=== PATIENT | male | born 1960 | race Caucasian/White ===

== ENCOUNTER 2016-11-06 09:06 | Inpatient (IN) | payer OTHER ==
[2016-11-06 09:23] VITALS: BMI 28.5
--- NOTE | 2016-11-06 12:43 | HP ---
Admission ROS [facility] Chief Complaint: I am here for rehab for treatment. Allergies/Adverse Reactions: Allergies Allergy/AdvReac Type Severity Reaction Status Date / Time No Known Allergies Allergy Verified 11/06/16 09:55 History of Present Illness: pt is a 56yr old male with a history of alcohol and opioid dependence seeking rehab for treatment. Exam Limitations: No Limitations - Ebola screening Have you traveled outside of the country in the last 21 days: No Have you had contact with anyone from an Ebola affected area: No Have you been sick,other than usual withdrawal symptoms: No - Review of Systems Constitutional: Loss of Appetite EENT: reports: No Symptoms Reported Respiratory: reports: No Symptoms reported Cardiac: reports: Lightheadedness GI: reports: Poor Appetite, Poor Fluid Intake, Indigestion : reports: No Symptoms Reported Musculoskeletal: reports: Muscle Pain, Joint Stiffness Integumentary: reports: No Symptoms Reported Neuro: reports: No Symptoms reported Endocrine: reports: No Symptoms Reported Hematology: reports: No Symptoms Reported Psychiatric: reports: Judgement Intact, Mood/Affect Appropiate, Orientated x3, Agitated, Anxious Other Systems: Reviewed and Negative Patient History - Patient Medical History Hx Anemia: No Hx Asthma: Yes (Pt is on MDI) Hx Chronic Obstructive Pulmonary Disease (COPD): Yes Hx Cancer: No Hx Cardiac Disorders: No Hx Congestive Heart Failure: No Hx Hypertension: No Hx Hypercholesterolemia: No Hx Pacemaker: No HX Cerebrovascular Accident: No Hx Seizures: No Hx Dementia: No Hx Diabetes: No Hx Gastrointestinal Disorders: No Hx Liver Disease: No Hx Genitourinary Disorders: No Hx Sexually Transmitted Disorders: No Hx Renal Disease (ESRD): No Hx Thyroid Disease: No Hx Human Immunodeficiency Virus (HIV): No (LAST 08/04 NEGATIVE) Hx Hepatitis C: No Hx Depression: No Hx Suicide Attempt: Yes (Tried to cut wrists in 1978; denies any S/H ideation today) Hx Bipolar Disorder: Yes Hx Schizophrenia: Yes (celexa and seroquel cogentin fluphenazine) - Patient Surgical History Past Surgical History: Yes Hx Neurologic Surgery: No Hx Cataract Extraction: Yes (L eye) Hx Cardiac Surgery: No Hx Lung Surgery: No Hx Breast Surgery: No Hx Breast Biopsy: No Hx Abdominal Surgery: No Hx Appendectomy: No Hx Cholecystectomy: No Hx Genitourinary Surgery: No Hx Section: No Hx Orthopedic Surgery: Yes (RIGHT KNEE 06/2016) Other Surgical History: L wrist sx in 1978. hemmorhoidectomy Anesthesia Reaction: No - PPD History Previous Implant?: Yes Documented Results: Negative w/proof Date: 10/26/16 PPD to be Administered?: No - Reproductive History Patient is a Female of Child Bearing Age (11 -55 yrs old): No - Smoking Cessation Smoking history: Current every day smoker Have you smoked in the past 12 months: Yes Aproximately how many cigarettes per day: 4 Cigars Per Day: 8 Hx Chewing Tobacco Use: No Initiated information on smoking cessation: Yes 'Breaking Loose' booklet given: 11/06/16 - Substance & Tx. History Hx Alcohol Use: Yes Hx Substance Use: Yes Substance Use Type: Alcohol, Heroin Hx Substance Use Treatment: Yes - Substances Abused Alcohol Route: Oral Frequency: Daily Amount used: 20 coors light/vodka Age of first use: 13 Date of Last Use: 11/03/16 Heroin Route: Inhalation Frequency: 3-6 times per week Amount used: 3 bags Age of first use: 16 Date of Last Use: 11/03/16 Family Disease History - Family Disease History Family Disease History: Heart Disease: Mother (), Other: Father (alcohol ,), Brother, Sister Admission Physical Exam S - Vital Signs Vital Signs: Vital Signs - 24 hr 11/06/16 09:20 Temperature 98.2 F Pulse Rate 88 Respiratory 20 Rate Blood Pressure 122/71 - Physical General Appearance: Yes: Appropriately Dressed, Moderate Distress, Tremorous, Irritable, Sweating, Anxious HEENTM: Yes: Hearing grossly Normal, Normal Voice, Nasal Congestion Respiratory: Yes: Lungs Clear, Normal Breath Sounds, No Respiratory Distress Neck: Yes: No masses,lesions,Nodules Breast: Yes: Within Normal Limits Cardiology: Yes: Regular Rhythm, Regular Rate, S1, S2 Abdominal: Yes: Normal Bowel Sounds, Non Tender, Soft Genitourinary: Yes: Within Normal Limits Back: Yes: Normal Inspection Musculoskeletal: Yes: Joint Stiffness Extremities: Yes: Normal Capillary Refill, Non-Tender, Tremors Neurological: Yes: Fully Oriented, Alert, Normal Response Integumentary: Yes: Normal Color, Diaphoresis Lymphatic: Yes: Within Normal Limits - Diagnostic (1) Asthma Current Visit: Yes Status: Chronic Qualifiers: Asthma severity: mild intermittent Asthma complication type: with status asthmaticus Qualified Code(s): J45.22 - Mild intermittent asthma with status asthmaticus Comment: sees primary (2) COPD (chronic obstructive pulmonary disease) Current Visit: Yes Status: Chronic Qualifiers: COPD type: emphysema Emphysema type: other Qualified Code(s): J43.8 - Other emphysema Comment: SYMBICORT (3) Knee osteoarthritis Current Visit: Yes Status: Chronic Qualifiers: Osteoarthritis type: post-traumatic Laterality: right Qualified Code(s): M17.31 - Unilateral post-traumatic osteoarthritis, right knee Comment: voltaren gel, sees ortho CANE WEAKNESS OF RIGHT KNEE (4) Nicotine dependence Current Visit: Yes Status: Chronic Qualifiers: Nicotine product type: cigarettes Substance use status: uncomplicated Qualified Code(s): F17.210 - Nicotine dependence, cigarettes, uncomplicated Comment: counseled cessation, gum CIGAR (5) Wrist pain, left Current Visit: Yes Status: Chronic Comment: sees ortho [facility] - surgery suggested - but he is afraid LEFT WRIST BRACE - (6) Syncope Current Visit: No Status: Suspected Cleared for Admission [facility] - Detox or Rehab [facility] Level of Care: Medically Managed Claeared for Rehab Admission: Yes [facility] Breath Alcohol Content Breath Alcohol Content: 0 Urine Drug Screen - Results Drug Screen Negative: No Urine Drug Screen Results: OPI-Opiates
[2016-11-06] MEDS ORDERED: MENTHOL/PHENOL 1 EACH UD MM PRN (12:53)
[2016-11-06] MEDS ORDERED: MAGNESIUM CITRATE 300 ML BOTTLE PO PRN (12:53)
[2016-11-06] MEDS ORDERED: P-EPHED 60MG/TRIPROLIDI 2.5MG TABLET PO PRN (12:53)
[2016-11-06] MEDS ORDERED: LOPERAMIDE HCL 2 MG CAPSULE PO PRN (12:53)
[2016-11-06] MEDS ORDERED: guaiFENesin/D-METHORPHAN HB 10 ML UNIT-DOSE CUPS PO PRN (12:53)
[2016-11-06] MEDS ORDERED: MAG HYDROX/AL HYDROX/SIMETH 30 ML UNIT-DOSE CUP PO PRN (12:53)
[2016-11-06] MEDS ORDERED: ALBUTEROL SO4 6.7 GM HFA INHALER IH PRN (12:55)
[2016-11-06] MEDS: MIRTAZAPINE 30 MG TABLET (FP) PO SCH (22:06)
[2016-11-06] MEDS: QUEtiapine FUMARATE 400 MG TABLET PO SCH (22:06)
[2016-11-06] MEDS: GABAPENTIN 300 MG CAPSULE (FP) PO SCH (22:06)
[2016-11-06] MEDS: BENZTROPINE MESYLATE 1 MG TABLET (FP) PO SCH (22:06)
[2016-11-06] MEDS: THIAMINE HCL 100 MG TABLET (FP) PO SCH (22:07)
[2016-11-06] MEDS: BACLOFEN 10 MG TABLET (FP) PO SCH (22:07)
[2016-11-07] MEDS: BACLOFEN 10 MG TABLET (FP) PO SCH ×3 (06:38→21:29)
[2016-11-07] MEDS: GABAPENTIN 300 MG CAPSULE (FP) PO SCH ×3 (06:38→21:29)
--- NOTE | 2016-11-07 07:00 | HP ---
Psychiatrist Admission - Data Date of interview: 11/07/16 Admission source: [facility] Identifying data: This is the first [facility] admission for this 56 years old male, father of 6, unemployed on SSI, domiciled Medical History: Significant for history of Asthma,Injury left wrist S/P surgery right knee in 2016, S/P Hemorrhoidectomy and S/P Cataract left eye Psychiatric History: Patient was irritable, superficialy cooperative with the interview since he was found in bed and awaken from his sleep. Reports history of Schizoaffective Disorder since age 16 and has had multiple psychiatric hospitalizations. Most recent one was at [facility]. Reports seeing a psychiatrist at [facility] ACT team and he is prescribed Prolixin 5 mg po BID, Seroquel 400 mg po HS, Remeron 30 mg po HS and Cogentin 1 mg po BID. Reports history of suicidal attempts by overdose and cutting his wrist. At present, feels very irritable Physical/Sexual Abuse/Trauma History: Denies history of physical, sexual abuse as DV relationship Additional Comment: Reports history of multiple misdemeanor arrests. Denies being on probation at present Vital Signs: Vital Signs - 24 hr 11/06/16 11/07/16 11/07/16 09:20 00:48 03:30 Temperature 98.2 F Pulse Rate 88 Respiratory 20 18 18 Rate Blood Pressure 122/71 Allergies/Adverse Reactions: Allergies Allergy/AdvReac Type Severity Reaction Status Date / Time No Known Allergies Allergy Verified 11/06/16 09:55 Date of last physical exam: 11/06/16 Concur with the findings of this exam: Yes - Substance Abuse/Tx History Hx Alcohol Use: Yes Hx Substance Use: Yes Substance Use Type: Alcohol (Started drinking alcohol at age 13, consumes 20 coors light/vodka), Heroin (Started using heroin at age 16, consumes 3 bags 3-6 times weekly. Last used on 11/03/16) Hx Substance Use Treatment: Yes (one previous inpt detox @ [facility]) - Admission Criteria Previous failed treatment: Yes Poor recovery environment: Yes Comorbidities: Yes Lacks judgement: Yes Mental Status Exam - Mental Status Exam Alert and Oriented to: Time, Place, Person Cognitive Function: Fair Patient Appearance: Disheveled Mood: Irritable Affect: Appropriate Patient Behavior: Cooperative Speech Pattern: Clear Voice Loudness: Normal Thought Process: Intact Thought Disorder: Not Present Hallucinations: Denies Suicidal Ideation: Denies Homicidal Ideation: Denies Insight/Judgement: Fair Sleep: Poorly Appetite: Good Muscle strength/Tone: Normal Gait/Station: Normal Psychiatric Findings - Problem List ([place] 1, 2,3) (1) Alcohol dependence Current Visit: Yes Status: Acute (2) Opioid dependence Current Visit: Yes Status: Acute (3) Nicotine dependence Current Visit: Yes Status: Chronic Qualifiers: Nicotine product type: cigarettes Substance use status: uncomplicated Qualified Code(s): F17.210 - Nicotine dependence, cigarettes, uncomplicated Comment: counseled cessation, gum CIGAR (4) Schizoaffective disorder Current Visit: Yes Status: Acute (5) Asthma Current Visit: Yes Status: Chronic Qualifiers: Asthma severity: mild intermittent Asthma complication type: with status asthmaticus Qualified Code(s): J45.22 - Mild intermittent asthma with status asthmaticus Comment: sees primary (6) COPD (chronic obstructive pulmonary disease) Current Visit: Yes Status: Chronic Qualifiers: COPD type: emphysema Emphysema type: other Qualified Code(s): J43.8 - Other emphysema Comment: SYMBICORT (7) Knee osteoarthritis Current Visit: Yes Status: Chronic Qualifiers: Osteoarthritis type: post-traumatic Laterality: right Qualified Code(s): M17.31 - Unilateral post-traumatic osteoarthritis, right knee Comment: voltarecrystal gel, sees ortho CANE WEAKNESS OF RIGHT KNEE (8) Wrist pain, left Current Visit: Yes Status: Chronic Comment: sees ortho [facility] - surgery suggested - but he is afraid LEFT WRIST BRACE - - Initial Treatment Plan Initial Treatment Plan: 1) Continue Proloxin HCL 5 mg po BID, Cogentin 1 mg po BID, Seroquel 400 mg po HS and Remeron 30 mg po HS( Medications verified through Pharmacy claims). 2) Monitor progress
[2016-11-07] MEDS: PRENATAL VITAMINS W/ FOLIC ACID TABLET (FP) PO SCH (10:29)
[2016-11-07] MEDS: NICOTINE 21 MG/24 HOURS TOPICAL PATCH TD SCH (10:29)
[2016-11-07] MEDS: BENZTROPINE MESYLATE 1 MG TABLET (FP) PO SCH ×2 (10:29→21:29)
[2016-11-07] MEDS: IBUPROFEN 600 MG TABLET (FP) PO PRN ×2 (12:31→21:28)
[2016-11-07 16:02] LABS: URINE APPEARANCE CLEAR; URINE BILIRUBIN NEGATIVE (NEGATIVE); URINE BLOOD NEGATIVE (NEGATIVE); URINE COLOR YELLOW; URINE GLUCOSE (UA) NEGATIVE (NEGATIVE); URINE KETONE NEGATIVE (NEGATIVE); URINE LEUK ESTERASE NEGATIVE (NEGATIVE); URINE NITRITE NEGATIVE (NEGATIVE); URINE PROTEIN NEGATIVE (NEGATIVE); URINE UROBILINOGEN NEGATIVE E.U./dl (0.2-1.0)
[2016-11-07] MEDS: THIAMINE HCL 100 MG TABLET (FP) PO SCH (21:28)
[2016-11-07] MEDS: MIRTAZAPINE 30 MG TABLET (FP) PO SCH (21:29)
[2016-11-07] MEDS: QUEtiapine FUMARATE 400 MG TABLET PO SCH (21:30)
[2016-11-08] MEDS: BACLOFEN 10 MG TABLET (FP) PO SCH ×3 (06:54→21:28)
[2016-11-08] MEDS: GABAPENTIN 300 MG CAPSULE (FP) PO SCH ×3 (06:54→21:28)
[2016-11-08] MEDS: IBUPROFEN 600 MG TABLET (FP) PO PRN ×3 (08:40→22:18)
[2016-11-08] MEDS: BENZTROPINE MESYLATE 1 MG TABLET (FP) PO SCH ×2 (10:18→21:28)
[2016-11-08] MEDS: NICOTINE 21 MG/24 HOURS TOPICAL PATCH TD SCH (10:18)
[2016-11-08] MEDS: PRENATAL VITAMINS W/ FOLIC ACID TABLET (FP) PO SCH (10:18)
[2016-11-08] MEDS: THIAMINE HCL 100 MG TABLET (FP) PO SCH (21:27)
[2016-11-08] MEDS: MIRTAZAPINE 30 MG TABLET (FP) PO SCH (21:28)
[2016-11-08] MEDS: QUEtiapine FUMARATE 400 MG TABLET PO SCH (21:29)
[2016-11-09] MEDS: GABAPENTIN 300 MG CAPSULE (FP) PO SCH ×3 (06:34→21:11)
[2016-11-09] MEDS: BACLOFEN 10 MG TABLET (FP) PO SCH ×3 (06:34→21:11)
[2016-11-09] MEDS: IBUPROFEN 600 MG TABLET (FP) PO PRN (06:35)
[2016-11-09] MEDS: PRENATAL VITAMINS W/ FOLIC ACID TABLET (FP) PO SCH (10:15)
[2016-11-09] MEDS: BENZTROPINE MESYLATE 1 MG TABLET (FP) PO SCH ×2 (10:15→21:11)
[2016-11-09] MEDS: NICOTINE 21 MG/24 HOURS TOPICAL PATCH TD SCH (10:16)
[2016-11-09] MEDS: hydrOXYzine PAMOATE 50 MG CAPSULE (FP) PO PRN ×2 (10:16→13:48)
[2016-11-09] MEDS: ACETAMINOPHEN 325 MG TABLET (FP) PO PRN (13:48)
[2016-11-09] MEDS: MIRTAZAPINE 30 MG TABLET (FP) PO SCH (21:11)
[2016-11-09] MEDS: QUEtiapine FUMARATE 400 MG TABLET PO SCH (21:11)
[2016-11-09] MEDS: THIAMINE HCL 100 MG TABLET (FP) PO SCH (21:11)
[2016-11-09] MEDS: diphenhydrAMINE HCL 50 MG CAPSULE PO PRN (21:12)
[2016-11-09] MEDS: NICOTINE POLACRILEX 4 MG GUM BC PRN (21:43)
[2016-11-10] MEDS: IBUPROFEN 600 MG TABLET (FP) PO PRN ×3 (06:12→21:16)
[2016-11-10] MEDS: BACLOFEN 10 MG TABLET (FP) PO SCH ×3 (06:12→21:17)
[2016-11-10] MEDS: GABAPENTIN 300 MG CAPSULE (FP) PO SCH ×3 (06:12→21:16)
[2016-11-10] MEDS: PRENATAL VITAMINS W/ FOLIC ACID TABLET (FP) PO SCH (10:10)
[2016-11-10] MEDS: NICOTINE 21 MG/24 HOURS TOPICAL PATCH TD SCH (10:10)
[2016-11-10] MEDS: BENZTROPINE MESYLATE 1 MG TABLET (FP) PO SCH ×2 (10:10→21:16)
[2016-11-10] MEDS: ACETAMINOPHEN 325 MG TABLET (FP) PO PRN (10:11)
[2016-11-10] MEDS: MIRTAZAPINE 30 MG TABLET (FP) PO SCH (21:16)
[2016-11-10] MEDS: THIAMINE HCL 100 MG TABLET (FP) PO SCH (21:16)
[2016-11-10] MEDS: QUEtiapine FUMARATE 400 MG TABLET PO SCH (21:16)
[2016-11-11] MEDS: GABAPENTIN 300 MG CAPSULE (FP) PO SCH ×3 (06:18→21:29)
[2016-11-11] MEDS: BACLOFEN 10 MG TABLET (FP) PO SCH ×3 (06:19→21:28)
[2016-11-11] MEDS: IBUPROFEN 600 MG TABLET (FP) PO PRN ×2 (06:20→21:27)
[2016-11-11] MEDS: BENZTROPINE MESYLATE 1 MG TABLET (FP) PO SCH ×2 (10:06→21:28)
[2016-11-11] MEDS: PRENATAL VITAMINS W/ FOLIC ACID TABLET (FP) PO SCH (10:06)
[2016-11-11] MEDS: NICOTINE 21 MG/24 HOURS TOPICAL PATCH TD SCH (10:07)
[2016-11-11] MEDS: hydrOXYzine PAMOATE 50 MG CAPSULE (FP) PO PRN (10:07)
[2016-11-11] MEDS: QUEtiapine FUMARATE 400 MG TABLET PO SCH (21:29)
[2016-11-11] MEDS: MIRTAZAPINE 30 MG TABLET (FP) PO SCH (21:29)
[2016-11-11] MEDS: diphenhydrAMINE HCL 50 MG CAPSULE PO PRN (21:29)
[2016-11-11] MEDS: THIAMINE HCL 100 MG TABLET (FP) PO SCH (21:49)
[2016-11-12] MEDS: IBUPROFEN 600 MG TABLET (FP) PO PRN ×3 (06:49→21:23)
[2016-11-12] MEDS: GABAPENTIN 300 MG CAPSULE (FP) PO SCH ×3 (06:49→21:23)
[2016-11-12] MEDS: BACLOFEN 10 MG TABLET (FP) PO SCH ×3 (06:49→21:22)
[2016-11-12] MEDS: PRENATAL VITAMINS W/ FOLIC ACID TABLET (FP) PO SCH (10:16)
[2016-11-12] MEDS: hydrOXYzine PAMOATE 50 MG CAPSULE (FP) PO PRN (10:16)
[2016-11-12] MEDS: BENZTROPINE MESYLATE 1 MG TABLET (FP) PO SCH ×2 (10:16→21:22)
[2016-11-12] MEDS: NICOTINE 21 MG/24 HOURS TOPICAL PATCH TD SCH (10:16)
[2016-11-12] MEDS: NICOTINE POLACRILEX 4 MG GUM BC PRN ×3 (10:17→21:24)
[2016-11-12] MEDS: MIRTAZAPINE 30 MG TABLET (FP) PO SCH (21:22)
[2016-11-12] MEDS: THIAMINE HCL 100 MG TABLET (FP) PO SCH (21:22)
[2016-11-12] MEDS: QUEtiapine FUMARATE 400 MG TABLET PO SCH (21:23)
[2016-11-13] MEDS: GABAPENTIN 300 MG CAPSULE (FP) PO SCH ×3 (06:17→21:17)
[2016-11-13] MEDS: BACLOFEN 10 MG TABLET (FP) PO SCH ×3 (06:17→21:17)
[2016-11-13] MEDS: IBUPROFEN 600 MG TABLET (FP) PO PRN ×2 (06:17→21:17)
[2016-11-13] MEDS: BENZTROPINE MESYLATE 1 MG TABLET (FP) PO SCH ×2 (10:29→21:17)
[2016-11-13] MEDS: hydrOXYzine PAMOATE 50 MG CAPSULE (FP) PO PRN (10:29)
[2016-11-13] MEDS: NICOTINE 21 MG/24 HOURS TOPICAL PATCH TD SCH (10:29)
[2016-11-13] MEDS: PRENATAL VITAMINS W/ FOLIC ACID TABLET (FP) PO SCH (10:29)
[2016-11-13] MEDS: NICOTINE POLACRILEX 4 MG GUM BC PRN ×3 (10:30→21:19)
[2016-11-13] MEDS: MIRTAZAPINE 30 MG TABLET (FP) PO SCH (21:17)
[2016-11-13] MEDS: QUEtiapine FUMARATE 400 MG TABLET PO SCH (21:17)
[2016-11-13] MEDS: THIAMINE HCL 100 MG TABLET (FP) PO SCH (21:18)
[2016-11-14] MEDS: IBUPROFEN 600 MG TABLET (FP) PO PRN (06:25)
[2016-11-14] MEDS: GABAPENTIN 300 MG CAPSULE (FP) PO SCH ×3 (06:25→21:35)
[2016-11-14] MEDS: BACLOFEN 10 MG TABLET (FP) PO SCH ×3 (06:25→21:35)
[2016-11-14] MEDS: PRENATAL VITAMINS W/ FOLIC ACID TABLET (FP) PO SCH (10:36)
[2016-11-14] MEDS: NICOTINE 21 MG/24 HOURS TOPICAL PATCH TD SCH (10:36)
[2016-11-14] MEDS: BENZTROPINE MESYLATE 1 MG TABLET (FP) PO SCH ×2 (10:36→21:35)
--- NOTE | 2016-11-14 14:17 | PN ---
Psychiatric Progress Note Vital Signs: Vital Signs Period Temp Pulse Resp BP Sys/Jaime Pulse Ox Last 24 Hr 98 F 83-83 18-18 122-122/70-72 Date of Session: 11/14/16 Chief Complaint:: Progress update HPI: Patient is addressing alcohol, opioid dependence comrobid Schizoaffective disorder. ROS: Asthma,Injury left wrist S/P surgery right knee in 2016, S/P Hemorrhoidectomy and S/P Cataract left eye Current Medications: Active Medications Generic Name Dose Route Start Last Admin Trade Name Freq PRN Reason Stop Dose Admin Acetaminophen 650 mg 11/06/16 12:53 11/10/16 10:11 Tylenol - PO 650 mg Q4H PRN Administration PAIN Al Hydroxide/Mg Hydroxide 30 ml 11/06/16 12:53 Mylanta Oral Suspension - PO Q6H PRN DYSPEPSIA Albuterol Sulfate 2 puff 11/06/16 12:55 Ventolin Hfa Inhaler - IH Q4H PRN ASTHMA Baclofen 10 mg 11/06/16 22:00 11/14/16 06:25 Lioresal - PO 10 mg TID GABRIEL Administration Benztropine Mesylate 1 mg 11/06/16 22:00 11/14/16 10:36 Cogentin - PO 1 mg BID GABRIEL Administration Cyclobenzaprine HCl 10 mg 11/14/16 12:39 Flexeril - PO TID PRN MUSCLE SPASMS Diphenhydramine HCl 50 mg 11/06/16 12:53 11/11/16 21:29 Benadryl - PO 50 mg HSMR1 PRN Administration INSOMNIA Eucalyptus/Menthol/Phenol/Sorbitol 1 each 11/06/16 12:53 Cepastat Lozenge - MM Q4H PRN SORE THROAT Fluphenazine HCl 5 mg 11/06/16 22:00 11/13/16 21:18 Prolixin - PO 5 mg HS GABRIEL Administration Gabapentin 300 mg 11/06/16 22:00 11/14/16 06:25 Neurontin - PO 300 mg TID GABRIEL Administration Guaifenesin 10 ml 11/06/16 12:53 Robitussin Dm - PO Q6H PRN COUGH Hydroxyzine Pamoate 50 mg 11/06/16 12:53 11/13/16 10:29 Vistaril - PO 50 mg Q4H PRN Administration AGITATION Ibuprofen 800 mg 11/14/16 12:53 Motrin - PO Q6H PRN SEVERE PAIN Loperamide HCl 4 mg 11/06/16 12:53 Imodium - PO Q6H PRN DIARRHEA Magnesium Citrate 300 ml 11/06/16 12:53 Citroma - PO Q48H PRN CONSTIPATION Magnesium Hydroxide 30 ml 11/06/16 12:53 Milk Of Magnesia - PO DAILY PRN CONSTIPATION Mirtazapine 30 mg 11/06/16 22:00 11/13/16 21:17 Remeron - PO 30 mg HS GABRIEL Administration Nicotine 21 mg 11/07/16 10:00 11/14/16 10:36 Nicoderm Patch - TD 21 mg DAILY GABRIEL Administration Nicotine Polacrilex 4 mg 11/06/16 12:53 11/13/16 21:19 Nicorette Gum - BC 4 mg Q2H PRN Administration NICOTINE REPLACEMENT RX Multivit/Folic Acid/Iron 1 tab 11/07/16 10:00 11/14/16 10:36 Vitamins (Sjr) - PO 1 tab DAILY GABRIEL Administration Pseudoephedrine/Triprolidine 1 combo 11/06/16 12:53 Actifed - PO TID PRN NASAL CONGESTION Quetiapine Fumarate 400 mg 11/06/16 22:00 11/13/16 21:17 Seroquel - PO 400 mg HS GABRIEL Administration Thiamine HCl 100 mg 11/06/16 22:00 11/13/16 21:18 Vitamin B1 - PO 100 mg HS GABRIEL Administration Current Side Effect: No Lab tests ordered: No Lab tests reviewed: Yes Provider note:: Reviewed the chart admission notes appreciated, met with the patient who reports he has been frustrated with his body aches, he takes tylenol,baclofen and flexaril and "somewhat relief pain". Patient reports he started to hear voices at age of 16, had a suicidal thoughts and cut his wrists at age of [age]. He reports that has been taking psychtropics since age of 16. Patient denies auditory/visual hallucinations at present time, reports he is a spiritual person and he can't flush his "thoughts and they affect my body and I have pain". Reviewed current medications with the patient, will not change medications, continue the same, monitor progress as neeed. Total face to face time:: 30 Mental Status Exam - Mental Status Exam Alert and Oriented to: Time, Place, Person Cognitive Function: Grossly Intact Patient Appearance: Well Groomed Mood: Depressed, Sad Affect: Appropriate, Mood Congruent Patient Behavior: Appropriate, Cooperative Speech Pattern: Clear, Appropriate Voice Loudness: Normal Thought Process: Intact, Goal Oriented Thought Disorder: Not Present Hallucinations: Denies Suicidal Ideation: Denies Homicidal Ideation: Denies Insight/Judgement: Fair Sleep: Fair Appetite: Good Muscle strength/Tone: Normal Gait/Station: Normal Psychiatric Treatment Plan - Problem List (1) Alcohol dependence Current Visit: Yes (2) Opioid dependence Current Visit: Yes (3) Schizoaffective disorder Current Visit: Yes (4) Asthma Current Visit: Yes Qualifiers: Asthma severity: mild intermittent Asthma complication type: with status asthmaticus Qualified Code(s): J45.22 - Mild intermittent asthma with status asthmaticus Comment: sees primary (5) COPD (chronic obstructive pulmonary disease) Current Visit: Yes Qualifiers: COPD type: emphysema Emphysema type: other Qualified Code(s): J43.8 - Other emphysema Comment: SYMBICORT (6) Knee osteoarthritis Current Visit: Yes Qualifiers: Osteoarthritis type: post-traumatic Laterality: right Qualified Code(s): M17.31 - Unilateral post-traumatic osteoarthritis, right knee Comment: voltaren gel, sees ortho CANE WEAKNESS OF RIGHT KNEE (7) Nicotine dependence Current Visit: Yes Qualifiers: Nicotine product type: cigarettes Substance use status: uncomplicated Qualified Code(s): F17.210 - Nicotine dependence, cigarettes, uncomplicated Comment: counseled cessation, gum CIGAR (8) Wrist pain, left Current Visit: Yes Comment: sees ortho [facility] - surgery suggested - but he is afraid LEFT WRIST BRACE -
[2016-11-14] MEDS: IBUPROFEN 400 MG TABLET (FP) PO PRN ×2 (14:27→21:34)
[2016-11-14] MEDS: ACETAMINOPHEN 325 MG TABLET (FP) PO PRN (17:50)
[2016-11-14] MEDS: CYCLOBENZAPRINE HCL 10 MG TABLET (FP) PO PRN (17:50)
[2016-11-14] MEDS: NICOTINE POLACRILEX 4 MG GUM BC PRN ×2 (17:51→21:36)
[2016-11-14] MEDS ORDERED: MIRTAZAPINE 15 MG TABLET (FP) ONE (18:12)
[2016-11-14] MEDS: THIAMINE HCL 100 MG TABLET (FP) PO SCH (21:33)
[2016-11-14] MEDS: QUEtiapine FUMARATE 400 MG TABLET PO SCH (21:35)
[2016-11-14] MEDS: MIRTAZAPINE 30 MG TABLET (FP) PO SCH (21:35)
[2016-11-15] MEDS: IBUPROFEN 400 MG TABLET (FP) PO PRN ×3 (06:29→21:17)
[2016-11-15] MEDS: GABAPENTIN 300 MG CAPSULE (FP) PO SCH ×3 (06:29→21:17)
[2016-11-15] MEDS: BACLOFEN 10 MG TABLET (FP) PO SCH ×3 (06:29→21:18)
[2016-11-15] MEDS: CYCLOBENZAPRINE HCL 10 MG TABLET (FP) PO PRN ×2 (06:32→14:24)
[2016-11-15] MEDS: BENZTROPINE MESYLATE 1 MG TABLET (FP) PO SCH ×2 (10:09→21:17)
[2016-11-15] MEDS: PRENATAL VITAMINS W/ FOLIC ACID TABLET (FP) PO SCH (10:09)
[2016-11-15] MEDS: NICOTINE 21 MG/24 HOURS TOPICAL PATCH TD SCH (10:10)
[2016-11-15] MEDS: NICOTINE POLACRILEX 4 MG GUM BC PRN ×2 (14:26→21:22)
[2016-11-15] MEDS: THIAMINE HCL 100 MG TABLET (FP) PO SCH (21:16)
[2016-11-15] MEDS: MIRTAZAPINE 30 MG TABLET (FP) PO SCH (21:17)
[2016-11-15] MEDS: QUEtiapine FUMARATE 400 MG TABLET PO SCH (21:17)
[2016-11-16] MEDS: IBUPROFEN 400 MG TABLET (FP) PO PRN ×3 (06:15→21:29)
[2016-11-16] MEDS: GABAPENTIN 300 MG CAPSULE (FP) PO SCH ×3 (06:15→21:26)
[2016-11-16] MEDS: CYCLOBENZAPRINE HCL 10 MG TABLET (FP) PO PRN ×3 (06:15→21:29)
[2016-11-16] MEDS: BACLOFEN 10 MG TABLET (FP) PO SCH ×3 (06:15→21:26)
[2016-11-16] MEDS: NICOTINE 21 MG/24 HOURS TOPICAL PATCH TD SCH (10:21)
[2016-11-16] MEDS: PRENATAL VITAMINS W/ FOLIC ACID TABLET (FP) PO SCH (10:21)
[2016-11-16] MEDS: BENZTROPINE MESYLATE 1 MG TABLET (FP) PO SCH ×2 (10:21→21:26)
[2016-11-16] MEDS: NICOTINE POLACRILEX 4 MG GUM BC PRN ×2 (13:05→21:31)
[2016-11-16] MEDS: QUEtiapine FUMARATE 400 MG TABLET PO SCH (21:27)
[2016-11-16] MEDS: MIRTAZAPINE 30 MG TABLET (FP) PO SCH (21:27)
[2016-11-16] MEDS: THIAMINE HCL 100 MG TABLET (FP) PO SCH (21:27)
[2016-11-17] MEDS: CYCLOBENZAPRINE HCL 10 MG TABLET (FP) PO PRN ×2 (06:24→13:57)
[2016-11-17] MEDS: GABAPENTIN 300 MG CAPSULE (FP) PO SCH ×3 (06:24→21:06)
[2016-11-17] MEDS: BACLOFEN 10 MG TABLET (FP) PO SCH ×3 (06:24→21:06)
[2016-11-17] MEDS: IBUPROFEN 400 MG TABLET (FP) PO PRN ×2 (06:24→13:57)
[2016-11-17] MEDS: PRENATAL VITAMINS W/ FOLIC ACID TABLET (FP) PO SCH (10:19)
[2016-11-17] MEDS: NICOTINE 21 MG/24 HOURS TOPICAL PATCH TD SCH (10:20)
[2016-11-17] MEDS: BENZTROPINE MESYLATE 1 MG TABLET (FP) PO SCH ×2 (10:20→21:06)
[2016-11-17] MEDS: NICOTINE POLACRILEX 4 MG GUM BC PRN ×4 (10:22→21:08)
[2016-11-17] MEDS: MIRTAZAPINE 30 MG TABLET (FP) PO SCH (21:06)
[2016-11-17] MEDS: THIAMINE HCL 100 MG TABLET (FP) PO SCH (21:06)
[2016-11-17] MEDS: QUEtiapine FUMARATE 400 MG TABLET PO SCH (21:07)
[2016-11-18] MEDS: GABAPENTIN 300 MG CAPSULE (FP) PO SCH ×3 (06:09→21:17)
[2016-11-18] MEDS: BACLOFEN 10 MG TABLET (FP) PO SCH ×3 (06:09→21:18)
[2016-11-18] MEDS: CYCLOBENZAPRINE HCL 10 MG TABLET (FP) PO PRN ×3 (06:09→21:16)
[2016-11-18] MEDS: IBUPROFEN 400 MG TABLET (FP) PO PRN ×3 (06:09→21:17)
[2016-11-18] MEDS: NICOTINE 21 MG/24 HOURS TOPICAL PATCH TD SCH (10:27)
[2016-11-18] MEDS: PRENATAL VITAMINS W/ FOLIC ACID TABLET (FP) PO SCH (10:27)
[2016-11-18] MEDS: BENZTROPINE MESYLATE 1 MG TABLET (FP) PO SCH ×2 (10:27→21:17)
[2016-11-18] MEDS: NICOTINE POLACRILEX 4 MG GUM BC PRN ×2 (10:28→21:19)
[2016-11-18] MEDS: QUEtiapine FUMARATE 400 MG TABLET PO SCH (21:17)
[2016-11-18] MEDS: THIAMINE HCL 100 MG TABLET (FP) PO SCH (21:18)
[2016-11-18] MEDS: MIRTAZAPINE 30 MG TABLET (FP) PO SCH (21:18)
[2016-11-19] MEDS: GABAPENTIN 300 MG CAPSULE (FP) PO SCH ×3 (06:25→21:08)
[2016-11-19] MEDS: BACLOFEN 10 MG TABLET (FP) PO SCH ×3 (06:25→21:07)
[2016-11-19] MEDS: CYCLOBENZAPRINE HCL 10 MG TABLET (FP) PO PRN ×3 (06:26→21:08)
[2016-11-19] MEDS: IBUPROFEN 400 MG TABLET (FP) PO PRN ×3 (06:26→21:08)
[2016-11-19] MEDS: BENZTROPINE MESYLATE 1 MG TABLET (FP) PO SCH ×2 (09:41→21:08)
[2016-11-19] MEDS: PRENATAL VITAMINS W/ FOLIC ACID TABLET (FP) PO SCH (09:41)
[2016-11-19] MEDS: NICOTINE POLACRILEX 4 MG GUM BC PRN ×2 (09:42→21:09)
[2016-11-19] MEDS: NICOTINE 21 MG/24 HOURS TOPICAL PATCH TD SCH (09:42)
[2016-11-19] MEDS: THIAMINE HCL 100 MG TABLET (FP) PO SCH (21:07)
[2016-11-19] MEDS: QUEtiapine FUMARATE 400 MG TABLET PO SCH (21:07)
[2016-11-19] MEDS: MIRTAZAPINE 30 MG TABLET (FP) PO SCH (21:08)
[2016-11-20] MEDS: CYCLOBENZAPRINE HCL 10 MG TABLET (FP) PO PRN ×3 (06:08→21:21)
[2016-11-20] MEDS: IBUPROFEN 400 MG TABLET (FP) PO PRN ×3 (06:08→21:20)
[2016-11-20] MEDS: BACLOFEN 10 MG TABLET (FP) PO SCH ×3 (06:09→21:21)
[2016-11-20] MEDS: GABAPENTIN 300 MG CAPSULE (FP) PO SCH ×3 (06:09→21:21)
[2016-11-20] MEDS: PRENATAL VITAMINS W/ FOLIC ACID TABLET (FP) PO SCH (09:52)
[2016-11-20] MEDS: NICOTINE 21 MG/24 HOURS TOPICAL PATCH TD SCH (09:52)
[2016-11-20] MEDS: BENZTROPINE MESYLATE 1 MG TABLET (FP) PO SCH ×2 (09:52→21:21)
[2016-11-20] MEDS: NICOTINE POLACRILEX 4 MG GUM BC PRN ×2 (13:20→21:24)
[2016-11-20] MEDS: MIRTAZAPINE 30 MG TABLET (FP) PO SCH (21:21)
[2016-11-20] MEDS: QUEtiapine FUMARATE 400 MG TABLET PO SCH (21:21)
[2016-11-20] MEDS: THIAMINE HCL 100 MG TABLET (FP) PO SCH (21:21)
[2016-11-21] MEDS: CYCLOBENZAPRINE HCL 10 MG TABLET (FP) PO PRN ×3 (06:08→21:48)
[2016-11-21] MEDS: GABAPENTIN 300 MG CAPSULE (FP) PO SCH ×3 (06:08→21:44)
[2016-11-21] MEDS: BACLOFEN 10 MG TABLET (FP) PO SCH ×3 (06:08→21:44)
[2016-11-21] MEDS: IBUPROFEN 400 MG TABLET (FP) PO PRN ×3 (06:08→21:47)
[2016-11-21] MEDS: BENZTROPINE MESYLATE 1 MG TABLET (FP) PO SCH ×2 (09:54→21:44)
[2016-11-21] MEDS: PRENATAL VITAMINS W/ FOLIC ACID TABLET (FP) PO SCH (09:54)
[2016-11-21] MEDS: NICOTINE 21 MG/24 HOURS TOPICAL PATCH TD SCH (09:54)
[2016-11-21] MEDS: NICOTINE POLACRILEX 4 MG GUM BC PRN ×3 (09:56→21:49)
[2016-11-21] MEDS: MIRTAZAPINE 30 MG TABLET (FP) PO SCH (21:44)
[2016-11-21] MEDS: THIAMINE HCL 100 MG TABLET (FP) PO SCH (21:44)
[2016-11-21] MEDS: QUEtiapine FUMARATE 400 MG TABLET PO SCH (21:44)
[2016-11-22] MEDS: GABAPENTIN 300 MG CAPSULE (FP) PO SCH ×3 (08:33→21:54)
[2016-11-22] MEDS: IBUPROFEN 400 MG TABLET (FP) PO PRN ×3 (08:33→21:54)
[2016-11-22] MEDS: BACLOFEN 10 MG TABLET (FP) PO SCH ×3 (08:33→21:54)
[2016-11-22] MEDS: hydrOXYzine PAMOATE 50 MG CAPSULE (FP) PO PRN (08:34)
[2016-11-22] MEDS: NICOTINE POLACRILEX 4 MG GUM BC PRN ×3 (08:34→21:57)
[2016-11-22] MEDS: CYCLOBENZAPRINE HCL 10 MG TABLET (FP) PO PRN ×3 (08:36→21:55)
[2016-11-22] MEDS: NICOTINE 21 MG/24 HOURS TOPICAL PATCH TD SCH (09:46)
[2016-11-22] MEDS: PRENATAL VITAMINS W/ FOLIC ACID TABLET (FP) PO SCH (09:46)
[2016-11-22] MEDS: BENZTROPINE MESYLATE 1 MG TABLET (FP) PO SCH ×2 (09:48→21:54)
[2016-11-22] MEDS ORDERED: MIRTAZAPINE 15 MG TABLET (FP) ONE (19:34)
[2016-11-22] MEDS: THIAMINE HCL 100 MG TABLET (FP) PO SCH (21:53)
[2016-11-22] MEDS: QUEtiapine FUMARATE 400 MG TABLET PO SCH (21:54)
[2016-11-22] MEDS: MIRTAZAPINE 30 MG TABLET (FP) PO SCH (21:55)
[2016-11-23] MEDS: BACLOFEN 10 MG TABLET (FP) PO SCH ×3 (06:13→21:22)
[2016-11-23] MEDS: GABAPENTIN 300 MG CAPSULE (FP) PO SCH ×2 (06:13→14:03)
[2016-11-23] MEDS: IBUPROFEN 400 MG TABLET (FP) PO PRN ×3 (06:13→21:22)
[2016-11-23] MEDS: BENZTROPINE MESYLATE 1 MG TABLET (FP) PO SCH ×2 (10:29→21:22)
[2016-11-23] MEDS: PRENATAL VITAMINS W/ FOLIC ACID TABLET (FP) PO SCH (10:29)
[2016-11-23] MEDS: NICOTINE POLACRILEX 4 MG GUM BC PRN ×3 (10:30→21:22)
[2016-11-23] MEDS: NICOTINE 21 MG/24 HOURS TOPICAL PATCH TD SCH (10:30)
[2016-11-23] MEDS: CYCLOBENZAPRINE HCL 10 MG TABLET (FP) PO PRN (14:06)
[2016-11-23] MEDS: QUEtiapine FUMARATE 400 MG TABLET PO SCH (21:21)
[2016-11-23] MEDS: GABAPENTIN 400 MG CAPSULE (FP) PO SCH (21:22)
[2016-11-23] MEDS: MIRTAZAPINE 30 MG TABLET (FP) PO SCH (21:22)
[2016-11-23] MEDS: THIAMINE HCL 100 MG TABLET (FP) PO SCH (21:29)
[2016-11-24] MEDS: BACLOFEN 10 MG TABLET (FP) PO SCH ×3 (06:13→21:38)
[2016-11-24] MEDS: IBUPROFEN 400 MG TABLET (FP) PO PRN ×3 (06:13→21:40)
[2016-11-24] MEDS: GABAPENTIN 400 MG CAPSULE (FP) PO SCH ×3 (06:14→21:38)
[2016-11-24] MEDS: hydrOXYzine PAMOATE 50 MG CAPSULE (FP) PO PRN (06:17)
[2016-11-24] MEDS: NICOTINE 21 MG/24 HOURS TOPICAL PATCH TD SCH (10:09)
[2016-11-24] MEDS: PRENATAL VITAMINS W/ FOLIC ACID TABLET (FP) PO SCH (10:09)
[2016-11-24] MEDS: BENZTROPINE MESYLATE 1 MG TABLET (FP) PO SCH ×2 (10:09→21:38)
[2016-11-24] MEDS: NICOTINE POLACRILEX 4 MG GUM BC PRN ×3 (10:11→21:43)
[2016-11-24] MEDS: THIAMINE HCL 100 MG TABLET (FP) PO SCH (21:37)
[2016-11-24] MEDS: QUEtiapine FUMARATE 400 MG TABLET PO SCH (21:38)
[2016-11-24] MEDS: MIRTAZAPINE 30 MG TABLET (FP) PO SCH (21:38)
[2016-11-25] MEDS: BACLOFEN 10 MG TABLET (FP) PO SCH ×3 (06:05→21:22)
[2016-11-25] MEDS: GABAPENTIN 400 MG CAPSULE (FP) PO SCH ×3 (06:05→21:22)
[2016-11-25] MEDS: IBUPROFEN 400 MG TABLET (FP) PO PRN ×3 (06:06→21:25)
[2016-11-25] MEDS: PRENATAL VITAMINS W/ FOLIC ACID TABLET (FP) PO SCH (10:17)
[2016-11-25] MEDS: NICOTINE 21 MG/24 HOURS TOPICAL PATCH TD SCH (10:17)
[2016-11-25] MEDS: BENZTROPINE MESYLATE 1 MG TABLET (FP) PO SCH ×2 (10:17→21:22)
[2016-11-25] MEDS: NICOTINE POLACRILEX 4 MG GUM BC PRN ×2 (10:20→13:16)
[2016-11-25] MEDS: MAGNESIUM HYDROX 2400MG/30ML ORAL SUSPENSION 30 ML CUP PO PRN (17:49)
[2016-11-25] MEDS: MIRTAZAPINE 30 MG TABLET (FP) PO SCH (21:22)
[2016-11-25] MEDS: QUEtiapine FUMARATE 400 MG TABLET PO SCH (21:22)
[2016-11-25] MEDS: THIAMINE HCL 100 MG TABLET (FP) PO SCH (21:23)
[2016-11-26] MEDS: GABAPENTIN 400 MG CAPSULE (FP) PO SCH ×3 (06:17→21:17)
[2016-11-26] MEDS: BACLOFEN 10 MG TABLET (FP) PO SCH ×3 (06:17→21:17)
[2016-11-26] MEDS: IBUPROFEN 400 MG TABLET (FP) PO PRN ×3 (06:17→21:21)
[2016-11-26] MEDS: NICOTINE 21 MG/24 HOURS TOPICAL PATCH TD SCH (10:25)
[2016-11-26] MEDS: PRENATAL VITAMINS W/ FOLIC ACID TABLET (FP) PO SCH (10:25)
[2016-11-26] MEDS: BENZTROPINE MESYLATE 1 MG TABLET (FP) PO SCH ×2 (10:25→21:17)
[2016-11-26] MEDS: MAGNESIUM HYDROX 2400MG/30ML ORAL SUSPENSION 30 ML CUP PO PRN (10:27)
[2016-11-26] MEDS: NICOTINE POLACRILEX 4 MG GUM BC PRN ×3 (10:28→21:18)
[2016-11-26] MEDS: THIAMINE HCL 100 MG TABLET (FP) PO SCH (21:17)
[2016-11-26] MEDS: MIRTAZAPINE 30 MG TABLET (FP) PO SCH (21:17)
[2016-11-26] MEDS: QUEtiapine FUMARATE 400 MG TABLET PO SCH (21:17)
[2016-11-27] MEDS: GABAPENTIN 400 MG CAPSULE (FP) PO SCH ×3 (06:31→21:09)
[2016-11-27] MEDS: IBUPROFEN 400 MG TABLET (FP) PO PRN ×3 (06:31→21:09)
[2016-11-27] MEDS: BACLOFEN 10 MG TABLET (FP) PO SCH ×3 (06:31→21:09)
[2016-11-27] MEDS: PRENATAL VITAMINS W/ FOLIC ACID TABLET (FP) PO SCH (09:54)
[2016-11-27] MEDS: BENZTROPINE MESYLATE 1 MG TABLET (FP) PO SCH ×2 (09:55→21:09)
[2016-11-27] MEDS: NICOTINE 21 MG/24 HOURS TOPICAL PATCH TD SCH (09:56)
[2016-11-27] MEDS: NICOTINE POLACRILEX 4 MG GUM BC PRN ×2 (13:52→21:11)
[2016-11-27] MEDS: THIAMINE HCL 100 MG TABLET (FP) PO SCH (21:09)
[2016-11-27] MEDS: MIRTAZAPINE 30 MG TABLET (FP) PO SCH (21:09)
[2016-11-27] MEDS: QUEtiapine FUMARATE 400 MG TABLET PO SCH (21:09)
[2016-11-28] MEDS: IBUPROFEN 400 MG TABLET (FP) PO PRN (06:21)
[2016-11-28] MEDS: BACLOFEN 10 MG TABLET (FP) PO SCH (06:21)
[2016-11-28] MEDS: GABAPENTIN 400 MG CAPSULE (FP) PO SCH (06:21)
[2016-11-28 06:41] VITALS: BP 137/84; PULSE 81; TEMP 98
--- NOTE | 2016-11-28 08:03 | PN ---
Psychiatric Progress Note Vital Signs: Vital Signs Period Temp Pulse Resp BP Sys/Jaime Pulse Ox Last 24 Hr 98.0 F 81 18-18 137/84 Date of Session: 11/28/16 Chief Complaint:: discharge visit HPI: Patient has addresses alcohol, opioid dependence comrobid Schizoaffective disorder. ROS: Asthma-medically managed, Injury left wrist S/P surgery right knee in 2016 , S/P Hemorrhoidectomy and S/P Cataract left eye. Current Medications: Active Medications Generic Name Dose Route Start Last Admin Trade Name Freq PRN Reason Stop Dose Admin Acetaminophen 650 mg 11/06/16 12:53 11/14/16 17:50 Tylenol - PO 650 mg Q4H PRN Administration PAIN Al Hydroxide/Mg Hydroxide 30 ml 11/06/16 12:53 11/25/16 14:32 Mylanta Oral Suspension - PO 30 ml Q6H PRN Administration DYSPEPSIA Albuterol Sulfate 2 puff 11/06/16 12:55 Ventolin Hfa Inhaler - IH Q4H PRN ASTHMA Baclofen 10 mg 11/06/16 22:00 11/28/16 06:21 Lioresal - PO 10 mg TID GABRIEL Administration Benztropine Mesylate 1 mg 11/06/16 22:00 11/27/16 21:09 Cogentin - PO 1 mg BID GABRIEL Administration Diphenhydramine HCl 50 mg 11/06/16 12:53 11/11/16 21:29 Benadryl - PO 50 mg HSMR1 PRN Administration INSOMNIA Eucalyptus/Menthol/Phenol/Sorbitol 1 each 11/06/16 12:53 Cepastat Lozenge - MM Q4H PRN SORE THROAT Fluphenazine HCl 5 mg 11/06/16 22:00 11/27/16 21:11 Prolixin - PO 5 mg HS GABRIEL Administration Gabapentin 400 mg 11/23/16 22:00 11/28/16 06:21 Neurontin - PO 400 mg TID GABRIEL Administration Guaifenesin 10 ml 11/06/16 12:53 Robitussin Dm - PO Q6H PRN COUGH Hydroxyzine Pamoate 50 mg 11/06/16 12:53 11/24/16 06:17 Vistaril - PO 50 mg Q4H PRN Administration AGITATION Ibuprofen 800 mg 11/14/16 12:53 11/28/16 06:21 Motrin - PO 800 mg Q6H PRN Administration SEVERE PAIN Loperamide HCl 4 mg 11/06/16 12:53 Imodium - PO Q6H PRN DIARRHEA Magnesium Citrate 300 ml 11/06/16 12:53 11/26/16 13:05 Citroma - PO 300 ml Q48H PRN Administration CONSTIPATION Magnesium Hydroxide 30 ml 11/06/16 12:53 11/26/16 10:27 Milk Of Magnesia - PO 30 ml DAILY PRN Administration CONSTIPATION Mirtazapine 30 mg 11/06/16 22:00 11/27/16 21:09 Remeron - PO 30 mg HS GABRIEL Administration Nicotine 21 mg 11/07/16 10:00 11/27/16 09:56 Nicoderm Patch - TD 21 mg DAILY GABRIEL Administration Nicotine Polacrilex 4 mg 11/06/16 12:53 11/27/16 21:11 Nicorette Gum - BC 4 mg Q2H PRN Administration NICOTINE REPLACEMENT RX Multivit/Folic Acid/Iron 1 tab 11/07/16 10:00 11/27/16 09:54 Vitamins (Sjr) - PO 1 tab DAILY GABRIEL Administration Pseudoephedrine/Triprolidine 1 combo 11/06/16 12:53 Actifed - PO TID PRN NASAL CONGESTION Quetiapine Fumarate 400 mg 11/06/16 22:00 11/27/16 21:09 Seroquel - PO 400 mg HS GABRIEL Administration Thiamine HCl 100 mg 11/06/16 22:00 11/27/16 21:09 Vitamin B1 - PO 100 mg HS GABRIEL Administration Current Side Effect: No Lab tests ordered: No Lab tests reviewed: Yes Provider note:: Patient has completed today his treatment and met his identified goals, [facility]. Patient focused on importance of changing attitude for the utilization of supports to prevent relapses, he focused on insights he gained in this treatment, he is motivated to continue to maintain abstinence. Patient responed well to his medications, no side-effects reported, scripts provided, patient is stable for discharge. Total face to face time:: 35 Mental Status Exam - Mental Status Exam Alert and Oriented to: Time, Place, Person Cognitive Function: Good Patient Appearance: Well Groomed Mood: Hopeful Affect: Appropriate, Mood Congruent Patient Behavior: Appropriate, Cooperative Speech Pattern: Clear, Appropriate Voice Loudness: Normal Thought Process: Goal Oriented Thought Disorder: Not Present Hallucinations: Denies Suicidal Ideation: Denies Homicidal Ideation: Denies Insight/Judgement: Fair Sleep: Fair Appetite: Fair Muscle strength/Tone: Normal Gait/Station: Normal Psychiatric Treatment Plan - Problem List (1) Alcohol dependence Current Visit: Yes (2) Opioid dependence Current Visit: Yes (3) Schizoaffective disorder Current Visit: Yes (4) Asthma Current Visit: Yes Qualifiers: Asthma severity: mild intermittent Asthma complication type: with status asthmaticus Qualified Code(s): J45.22 - Mild intermittent asthma with status asthmaticus Comment: sees primary (5) COPD (chronic obstructive pulmonary disease) Current Visit: Yes Qualifiers: COPD type: emphysema Emphysema type: other Qualified Code(s): J43.8 - Other emphysema Comment: SYMBICORT (6) Knee osteoarthritis Current Visit: Yes Qualifiers: Osteoarthritis type: post-traumatic Laterality: right Qualified Code(s): M17.31 - Unilateral post-traumatic osteoarthritis, right knee Comment: massimo olivera, sees ortho CANE WEAKNESS OF RIGHT KNEE (7) Nicotine dependence Current Visit: Yes Qualifiers: Nicotine product type: cigarettes Substance use status: uncomplicated Qualified Code(s): F17.210 - Nicotine dependence, cigarettes, uncomplicated Comment: counseled cessation, gum CIGAR (8) Wrist pain, left Current Visit: Yes Comment: sees ortho [facility] - surgery suggested - but he is afraid LEFT WRIST BRACE -
[2016-11-28] MEDS: BENZTROPINE MESYLATE 1 MG TABLET (FP) PO SCH (10:07)
[2016-11-28] MEDS: PRENATAL VITAMINS W/ FOLIC ACID TABLET (FP) PO SCH (10:07)
[2016-11-28] MEDS: NICOTINE 21 MG/24 HOURS TOPICAL PATCH TD SCH (10:07)
== END 2016-11-28 10:35 | disposition home or self-care (01) | DRG 772 ==
LOC: YASAS 09:06 → Y5N 12:58
PROVIDERS: ADMIT Psychiatry & Neurology Psychiatry; ATTEND Psychiatry & Neurology Psychiatry
PROC: HZ42ZZZ Group Counseling for Substance Abuse Treatment, Cognitive-Behavioral (ICD-10-PCS; principal; 2016-11-06)
DX: F11.20 Opioid dependence, uncomplicated (principal); F10.20 Alcohol dependence, uncomplicated; F17.210 Nicotine dependence, cigarettes, uncomplicated; F25.9 Schizoaffective disorder, unspecified; J45.22 Mild intermittent asthma with status asthmaticus; J43.8 Other emphysema; H26.9 Unspecified cataract; M17.31 Unilateral post-traumatic osteoarthritis, right knee; M25.532 Pain in left wrist; Z91.5 Personal history of self-harm; Z86.79 Personal history of other diseases of the circulatory system
CPT/HCPCS: 36415; 81003; 86803; 93005; 93010; J0475

== ENCOUNTER 2019-11-18 11:22 | Emergency (ER) | payer OTHER ==
[2019-11-18 11:42] VITALS: BP 106/80; PULSE 88; TEMP 98.7; BMI 27.2
[2019-11-18] MEDS ORDERED: ACETAMINOPHEN 1000 MG/100 ML VIAL (NON FORMULARY) IVPB ONE (11:52)
[2019-11-18] MEDS ORDERED: SODIUM CHLORIDE 0.9% 500 ML INFUS.BAG IV ONE ×2 (11:52→13:30)
--- NOTE | 2019-11-18 12:10 | PDOC ---
History of Present Illness - General Chief Complaint: Weakness Stated Complaint: HYPOTENSION,WITHDRAWALS Time Seen by Provider: 11/18/19 11:39 History Source: Patient Exam Limitations: No Limitations - History of Present Illness Initial Comments: 11/18/19 11:59 59YOM with h/o EtOH use disorder (>6 beers/day) who p/w several days of worsening flu-like symptoms (malaise, head-to-toe body aches, decreased appetite ) which has been worsening. Also has lightheadedness and vague upper abdominal discomfort for the past day. He notes having worsened significantly during a PCP appointment today and he was instructed to come to the ED. Took no medications for the symptoms. Last drink was yesterday, does not usually start drinking until later in the day. Denies withdrawing right now. Has not been eating or drinking because it "doesn't sit well". Past History - Past Medical History Allergies/Adverse Reactions: Allergies Allergy/AdvReac Type Severity Reaction Status Date / Time gabapentin AdvReac Intermediate Swelling Verified 02/14/18 09:54 Home Medications: Ambulatory Orders Albuterol Sulfate Inhaler - [Ventolin Hfa Inhaler -] 2 inh PO Q4H PRN 08/10/15 Benztropine Mesylate [Cogentin -] 1 mg PO BID #60 tablet 11/28/16 Fluphenazine HCl [Prolixin -] 5 mg PO HS #30 tablet 11/28/16 Mirtazapine [Remeron -] 30 mg PO HS #30 tablet 11/28/16 Nicotine Polacrilex [Nicotine Gum] 4 mg BC TID PRN 02/23/17 Bacitracin - [Bacitracin Topical Ointment -] 1 applic TP BID #1 tube 12/18/17 Guaifenesin [Mucinex -] 600 mg PO BID #28 tablet.er 01/20/19 Mirabegron [Myrbetriq] 25 mg PO HS 04/30/19 Mirabegron [Myrbetriq] 50 mg PO AM 04/30/19 Pantoprazole Sodium [Protonix -] 40 mg PO DAILY 04/30/19 Buprenorphine HCl/Naloxone HCl [Suboxone 12 mg-3 mg Sl Film] 1 each SL BID #60 film MDD 2 10/27/19 Buprenorphine/Naloxone [Suboxone 8Mg/2Mg Sl Film -] 1 each SL DAILY #30 film MDD 1 10/27/19 Lisinopril [Prinivil] 5 mg PO DAILY 10/27/19 Polyethylene Glycol 3350 [Miralax 255 gm Btl -] 17 gm PO DAILY #1 bottle Sennosides [Senna -] 2 tab PO DAILY PRN #60 tablet 10/27/19 Calcium 250Mg/Vit-D 125 Units [Oscal 250 mg+D -] 1 combo PO DAILY #30 tablet Diclofenac Sodium [Voltaren] 2 gm TP TID PRN #3 tube 11/05/19 Ergocalciferol (Vitamin D2) [Vitamin D2] 50,000 unit PO Q7D #4 capsule 11/05/19 Folic Acid - 1 mg PO DAILY #30 tablet 11/05/19 Multivitamin [Multiple Vitamins] 1 each PO DAILY #30 tablet 11/05/19 Vitamin B Complex 1 each PO DAILY #30 tablet 11/05/19 Anemia: No Asthma: Yes (Pt is on MDI) Cancer: No Cardiac Disorders: No (? syncope, episode chest pain) CVA: No COPD: Yes CHF: No Dementia: No Diabetes: No GI Disorders: Yes (reflux - on meds) Disorders: No HTN: Yes (on meds) Hypercholesterolemia: No Kidney Stones: No Liver Disease: Yes (elevated LFTs) Seizures: No Thyroid Disease: No - Surgical History Abdominal Surgery: No Appendectomy: No Cardiac Surgery: No Cholecystectomy: No Lung Surgery: No Neurologic Surgery: No Orthopedic Surgery: Yes (RIGHT KNEE 06/2016) - Reproductive History Testicular Surgery: No - Psycho Social/Smoking Cessation Hx Smoking History: Current every day smoker Have you smoked in the past 12 months: Yes Number of Cigarettes Smoked Daily: 10 Cigars Per Day: 8 Information on smoking cessation initiated: No 'Breaking Loose' booklet given: 11/06/16 Hx Alcohol Use: Yes Drug/Substance Use Hx: Yes (pcp yesterday) Substance Use Type: Alcohol, Heroin Hx Substance Use Treatment: Yes (one previous inpt detox @ [facility], now on suboxone ) Review of Systems - Review of Systems Able to Perform ROS?: Yes Comments:: 11/18/19 12:13 GEN: chills, generalized weakness, malaise, no night sweats, or unintentional weight change HEENT: sore throat, no ear pain, congestion, rhinorrhea, nosebleed, vision change, or eye pain CV: chest discomfort, lightheadedness, no palpitations, syncope, edema, or exercise intolerance RESP: no cough, wheezing, or SOB GI: no abdominal pain, nausea, vomiting, diarrhea, constipation, appetite change , or white/black/bloody stool : no dysuria, hematuria, frequency, incontinence, retention, pruritis, bleeding, or discharge MSK: no muscle weakness or pain, no muscle wasting, no joint swelling or pain NEURO: no headache, seizure, vertigo, imbalance, numbness, tingling, focal weakness, or difficulty walking/talking PSYCH: no insomnia, behavior change, SI, HI, or substance use SKIN: no prutitis, excessive dryness, jaundice, rash, cuts, or unexplained bruises ROS otherwise negative except as noted in HPI *Physical Exam - Vital Signs Last Vital Signs Temp Pulse Resp BP Pulse Ox 98.7 F 88 16 106/80 97 11/18/19 11:36 11/18/19 11:36 11/18/19 11:36 11/18/19 11:36 11/18/19 11:36 - Physical Exam 11/18/19 12:11 GENERAL: tired appearing, arousable, A/Ox4, no distress, answers questions appropriately, keeps eyes closed for most of exam HEENT: PERRLA, EOMI, dry mucous membranes NECK/BACK: no midline ttp, no spinal stepoff or deformity, no hematoma, full ROM , neck supple CARDIOVASCULAR: regular rate/rhythm, normal S1S2, no MGR, strong peripheral pulses, capillary refill <2 seconds, extremities wwp, no edema LUNGS/RESPIRATORY: no respiratory distress, CTAB GI/ABDOMEN: symmetric [id number], normoactive BS, soft, no ttp, no midline pulsatile masses : no CVA tenderness EXTREMITIES: no muscle atrophy, no acute deformity SKIN: warm and dry, no pallor, no jaundice, no rash, no bruising, no skin breakdown, no cuts, no lesions NEUROLOGICAL: GCS 15, CN II-XII grossly intact, 5/5 strength proximally and distally, no facial droop, no truncal ataxia Heart Score/ECG Review - History History: Slightly suspicious - Electrocardiogram EKG: Normal - Age Age: 45-65 - Troponin Troponin: </= normal limit #1 11/18/19 11:40 Sinus rhythm, rate 86, normal axis and intervals, no ischemic ST_T changes. ED Treatment Course - LABORATORY CBC & Chemistry Diagram: 11/18/19 12:43 11/18/19 11:52 - RADIOLOGY Radiology Studies Ordered: Category Date Time Status CHEST X-RAY PORTABLE* [RAD] Stat Radiology 11/18/19 11:52 Ordered Medical Decision Making - Medical Decision Making 11/18/19 13:31 59YOM presented with flu-like all-over symptoms, also chest discomfort, lightheadedness. Initial Vital Signs Temp Pulse Resp BP Pulse Ox 98.7 F 88 16 106/80 97 11/18/19 11:36 11/18/19 11:36 11/18/19 11:36 11/18/19 11:36 11/18/19 11:36 Most likely influenza or viral URI. Sore throat so possible Strep. Patient likely dehydrated as not taking in fluids or food. Ordered are labs, CXR, EKG, IVF, Ofirmev. Will re-assess and decide dispo pending w/u results. Laboratory Tests 11/18/19 11/18/19 11/18/19 11:52 11:59 12:43 WBC RBC Hgb Hct MCV MCH MCHC RDW Plt Count MPV Absolute Neuts (auto) Neutrophils % Lymphocytes % Monocytes % Eosinophils % Basophils % Nucleated RBC % Sodium 139 Potassium 4.3 Chloride 106 Carbon Dioxide 27 Anion Gap 6 L BUN 14.1 Creatinine 0.6 Est GFR (CKD-EPI)AfAm 126.66 Est GFR (CKD-EPI)NonAf 109.28 Random Glucose 103 Calcium 9.8 Total Bilirubin 0.4 AST 28 ALT 35 Alkaline Phosphatase 89 Ammonia Creatine Kinase 153 Troponin I < 0.02 Total Protein 7.4 Albumin 4.1 Lipase 343 Alcohol, Quantitative < 3 Influenza A (Rapid) Influenza B (Rapid) Group A Strep Rapid Negative 11/18/19 11/18/19 11/18/19 12:43 12:43 13:28 WBC 7.3 RBC 4.75 Hgb 16.0 Hct 47.3 MCV 99.6 H MCH 33.7 MCHC 33.8 RDW 13.5 Plt Count 268 D MPV 9.1 Absolute Neuts (auto) 4.4 Neutrophils % 60.7 Lymphocytes % 28.4 Monocytes % 9.0 Eosinophils % 0.8 Basophils % 1.1 Nucleated RBC % 0 Sodium Potassium Chloride Carbon Dioxide Anion Gap BUN Creatinine Est GFR (CKD-EPI)AfAm Est GFR (CKD-EPI)NonAf Random Glucose Calcium Total Bilirubin AST ALT Alkaline Phosphatase Ammonia 38.10 H Creatine Kinase Troponin I Total Protein Albumin Lipase Alcohol, Quantitative Influenza A (Rapid) Negative Influenza B (Rapid) Negative Group A Strep Rapid CXR: nothing acute. This patient has gotten significant relief of symptoms while in the ED. He received 2 liters IVF and appears much better, drank 2 cups orange juice and ate a sandwich, no nausea. On last reassessment, vitals are wnl, pain is reasonably controlled, and exam is benign. Workup is not concerning for emergency-level pathology at this time. This patient is appropriate for discharge with close outpatient follow up. They are comfortable with this plan and will follow up with their primary care provider in 1-3 days. Specific return precautions are discussed and they will come back to the ER if necessary. Discharge - Discharge Information Problems reviewed: Yes Clinical Impression/Diagnosis: Malaise, Generalized weakness Condition: Stable Disposition: HOME - Admission No - Follow up/Referral Referrals: Eyad Lux MD [Primary Care Provider] - - Patient Discharge Instructions Additional Instructions: You were seen in the ER for generalized weakness, head-to-toe body aches, and decreased appetite. We checked your labs, EKG, anc chest x-ray and everything appeared normal. We gave you IV fluids and Tylenol with much improvement. Please go home, rest, and drink plenty of fluids. Follow up with your PCP this week for a re-check. Take Tylenol or Motrin at home for any mild discomfort. Return to the ER for any new or worsening symptoms, especially severe abdominal pain or chest pain, difficulty breathing, vomiting or diarrhea with blood, or other symptoms. - Post Discharge Activity Work/Back to School Note: Back to Work
--- NOTE | 2019-11-18 12:34 | PDOC ---
Documentation entered by Kyle Saavedra SCRIBE, acting as scribe for Ree Page DO. Ree Page DO: This documentation has been prepared by the Keri ramirez Andrys, SCRIBE, under my direction and personally reviewed by me in its entirety. I confirm that the documentation accurately reflects all work, treatment, procedures, and medical decision making performed by me. Attending Attestation - Resident Resident Name: Nevaeh Suarez - ED Attending Attestation I have performed the following: I have examined & evaluated the patient, The case was reviewed & discussed with the resident, I agree w/resident's findings & plan, Exceptions are as noted - HPI HPI: 11/18/19 12:41 The patient is a 59 year old male with significant past medical history of asthma and depression who presents to the ED, sent from [facility], with flu like symptoms for several days. Patient reports generalized weakness and generalized body aches. Patient also reports diarrhea and throat pain and is unable to eat and drink. The patient denies fever or chills. Denies any other symptoms. Social hx: Patient drinks a 6 pack of beer everyday. - Physicial Exam PE: 11/18/19 12:41 Constitutional: Awake, alert, oriented. No acute distress. Head: Normocephalic. Atraumatic Eyes: + Mild icteric eyes. Left pupil tear drop that is chronic. Decreased vision on left eye. PERRL. EOMI. Conjunctivae are not pale. ENT: + Posterior pharynx is erythematous without exudates. Mucous membranes are moist and intact. Uvula midline. Neck: Supple. Full ROM. No lymphadenopathy. Cardiovascular: Regular rate. Regular rhythm. S1, S2 regular. Distal pulses are 2+ and symmetric. Pulmonary/Chest: No evidence of respiratory distress. Clear to auscultation bilaterally No wheezing, rales or rhonchi. Abdominal: + mild epigastric tenderness. Soft and non-distended. No rebound, guarding or rigidity. No organomegaly. No palpable masses. Good bowel sounds. Back: No CVA tenderness. Musculoskeletal: No edema. No cyanosis. No clubbing. Full range of motion in all extremities. Nocalf tenderness. Radial/pedal pulses are intact and 2+ bilaterally Skin: Skin is warm and dry. No petechiae. No purpura. Neurological: Alert and oriented to person, place, and time. Cranial nerves II -XII are grossly intact. Normal speech. Strength is grossly symmetric. No sensory deficits. Psychiatric: Good eye contact. Normal interaction, affect and behavior. - Medical Decision Making 11/18/19 12:28 I, Dr. Ree Page, DO, attest that this document has been prepared under my direction and personally reviewed by me in its entirety. I further attest, that it accurately reflects all work, treatment, procedures and medical decision -making performed by me. a/p: 59yo male with hx of etoh use daily with generalized weakness, sore throat , body aches -decreased po intake x 1 day -abd pain -no n/v, c/o diarrhea -sore throat -will send strep, flu, labs, lipase -will start ivf hydration -will monitor and reassess -pt generally weak on exam 11/18/19 13:24 strep neg labs pending flu pending 11/18/19 13:58 flu neg ammonia 38 labs reviewed pt feels better state he wants to be discharged so that he can go eat in the cafe upstairs all pain resolved lipase pending pt drank oj and ate a sandwich 11/18/19 14:06 lipase 343- feels better eating and drinking awake neuro intact stable for dc to home Heart Score/ECG Review - ECG Intrepretation Comment:: 11/18/19 12:33 sinus at 86, nl axis, n linteval, no acute st/t wave findings
[2019-11-18] MEDS ORDERED: ACETAMINOPHEN INJECTION 100 ML IVPB ONE (12:35)
[2019-11-18 12:58] LABS: BASO % 1.1 % (0-2.0); EOS % 0.8 % (0-4.5); HEMATOCRIT 47.3 % (35.4-49); LYMPH % 28.4 % (8-40); MCH 33.7 pg (25.7-33.7); MCHC 33.8 g/dl (32.0-35.9); MEAN CELL VOLUME 99.6 fl (80-96); MEAN PLT VOLUME 9.1 fl (7.5-11.1); NEUT % 60.7 % (42.8-82.8); PLATELET COUNT 268 K/MM3 (134-434); RBC 4.75 M/mm3 (4.00-5.60); RDW 13.5 % (11.9-15.9); WHITE BLOOD COUNT 7.3 K/mm3 (4.0-10.0)
[2019-11-18 13:32] LABS: ALBUMIN 4.1 g/dl (3.4-5.0); ALK PHOS 89 U/L (45-117); ANION GAP 6 MMOL/L (8-16); BILIRUBIN,TOTAL 0.4 mg/dL (0.2-1); BLOOD UREA NITROGEN 14.1 mg/dL (7-18); CALCIUM 9.8 mg/dL (8.5-10.1); CHLORIDE 106 mmol/L (98-107); CO2 27 mmol/L (21-32); CREATININE 0.6 mg/dL (0.55-1.3); GLUCOSE,RANDOM 103 mg/dL (74-106); POTASSIUM 4.3 mmol/L (3.5-5.1); SGOT/AST 28 U/L (15-37); SGPT/ALT 35 U/L (13-61); SODIUM 139 mmol/L (136-145); TOT PROT 7.4 g/dl (6.4-8.2)
[2019-11-18 14:01] LABS: LIPASE 343 U/L (73-393)
--- NOTE | 2019-11-18 15:14 | EKG ---
Test Reason : Blood Pressure : / mmHG Vent. Rate : 086 BPM Atrial Rate : 086 BPM P-R Int : 118 ms QRS Dur : 090 ms QT Int : 338 ms P-R-T Axes : 042 002 048 degrees QTc Int : 404 ms NORMAL SINUS RHYTHM NORMAL ECG WHEN COMPARED WITH ECG OF 01-MAR-2018 12:40, INCOMPLETE RIGHT BUNDLE BRANCH BLOCK IS NO LONGER PRESENT CRITERIA FOR SEPTAL INFARCT ARE NO LONGER PRESENT Confirmed by MD Larry, Frantz ([id number]) on 11/18/2019 3:14:02 PM Referred By: Confirmed By:Frantz Juarez MD
== END 2019-11-18 14:10 | disposition home or self-care (01) ==
LOC: JER 11:22
DX: R53.1 Weakness (principal); R53.81 Other malaise; Z88.8 Allergy status to other drugs, medicaments and biological substances; F17.210 Nicotine dependence, cigarettes, uncomplicated; J44.9 Chronic obstructive pulmonary disease, unspecified; K21.9 Gastro-esophageal reflux disease without esophagitis
CPT/HCPCS: 36415; 71045-TC-FY; 80053; 80307; 82140; 82550; 82553; 83690; 84484; 85025; 87070; 87804; 87880; 93005; 93010; 99283-25; J0131

== ENCOUNTER 2020-12-08 15:29 | Emergency (ER) | payer OTHER ==
[2020-12-08] MEDS ORDERED: NALOXONE HCL 0.4 MG/ML VIAL IVPUSH ONE (15:47)
[2020-12-08 16:10] VITALS: TEMP 98.3; BMI 23.5
[2020-12-08] MEDS ORDERED: SODIUM CHLORIDE 0.9% 500 ML INFUS.BAG IV ONE (16:32)
[2020-12-08] MEDS ORDERED: ACETAMINOPHEN 1000 MG/100 ML VIAL (NON FORMULARY) IVPB ONE (16:32)
[2020-12-08 16:42] LABS: BASO % 0.8 % (0-2.0); HEMATOCRIT 40.3 % (35.4-49); HEMOGLOBIN 13.6 GM/dL (11.7-16.9); LYMPH % 27.5 % (8-40); MCH 31.8 pg (25.7-33.7); MCHC 33.7 g/dl (32.0-35.9); MEAN CELL VOLUME 94.3 fl (80-96); MEAN PLT VOLUME 8.6 fl (7.5-11.1); NEUT % 64.7 % (42.8-82.8); PLATELET COUNT 273 K/MM3 (134-434); RBC 4.27 M/mm3 (4.00-5.60); RDW 13.6 % (11.9-15.9); WHITE BLOOD COUNT 6.7 K/mm3 (4.0-10.0)
[2020-12-08] MEDS ORDERED: ACETAMINOPHEN INJECTION 100 ML IVPB ONE (16:47)
[2020-12-08 16:52] LABS: INR 0.88 (0.83-1.09); PROTHROMBIN TIME (PATIENT) 10.9 SEC (9.7-13.0)
[2020-12-08 16:54] LABS: ACTIVATED PTT 25.6 SECONDS (25.2-36.5)
[2020-12-08 17:03] LABS: CHLORIDE 103 mmol/L (98-107); POTASSIUM 4.3 mmol/L (3.5-5.1); SODIUM 135 mmol/L (136-145)
[2020-12-08 17:05] LABS: CALCIUM 8.7 mg/dL (8.5-10.1)
[2020-12-08 17:06] LABS: ANION GAP 8 MMOL/L (8-16); CO2 24 mmol/L (21-32); GLUCOSE,RANDOM 196 mg/dL (74-106); MAGNESIUM 2.5 mg/dL (1.8-2.4)
[2020-12-08 17:09] LABS: CREATININE 1.6 mg/dL (0.55-1.3); SGOT/AST 38 U/L (15-37); SGPT/ALT 34 U/L (13-61)
[2020-12-08 17:10] LABS: BILIRUBIN,TOTAL 0.3 mg/dL (0.2-1); TOT PROT 7.1 g/dl (6.4-8.2)
[2020-12-08 17:12] LABS: ALK PHOS 68 U/L (45-117)
[2020-12-08] MEDS ORDERED: LACTATED RINGERS SOLUTION 1000 ML INFUS.BAG IV ONE ×2 (17:41→17:53)
[2020-12-08 17:44] LABS: ANISOCYTOSIS 1+; MACROCYTOSIS 0; OVALOCYTE 1+; PLATELET ESTIMATE NORMAL
[2020-12-08 20:38] LABS: CHLORIDE 108 mmol/L (98-107); POTASSIUM 4.7 mmol/L (3.5-5.1); SODIUM 140 mmol/L (136-145)
[2020-12-08 20:40] LABS: ALBUMIN 3.6 g/dl (3.4-5.0); ANION GAP 4 MMOL/L (8-16); BLOOD UREA NITROGEN 7.8 mg/dL (7-18); CALCIUM 8.6 mg/dL (8.5-10.1); CO2 28 mmol/L (21-32); MAGNESIUM 1.9 mg/dL (1.8-2.4)
[2020-12-08 20:41] LABS: GLUCOSE,RANDOM 92 mg/dL (74-106)
[2020-12-08 20:43] LABS: SGPT/ALT 34 U/L (13-61)
[2020-12-08 20:44] LABS: CREATININE 1.1 mg/dL (0.55-1.3); SGOT/AST 60 U/L (15-37)
[2020-12-08 20:45] LABS: BILIRUBIN,TOTAL 0.3 mg/dL (0.2-1); TOT PROT 6.1 g/dl (6.4-8.2)
[2020-12-08 20:46] LABS: ALK PHOS 54 U/L (45-117)
[2020-12-08 21:28] VITALS: BP 99/75; PULSE 72
== END 2020-12-08 21:35 | disposition short-term general hospital (02) ==
LOC: JER 15:29
PROC: 3E0333Z Introduction of Anti-inflammatory into Peripheral Vein, Percutaneous Approach (ICD-10-PCS; principal; 2020-12-08)
PROC: 3E033GC Introduction of Other Therapeutic Substance into Peripheral Vein, Percutaneous Approach (ICD-10-PCS; 2020-12-08)
DX: T50.901A Poisoning by unspecified drugs, medicaments and biological substances, accidental (unintentional), initial encounter (principal)
CPT/HCPCS: 36415; 70450-TC; 71045-TC-FY; 71250-TC; 72125-TC; 80053; 80307; 82550; 82553; 83735; 84484; 85025; 85610; 85730; 87040; 87186; 93005; 93010; 99285-25; J0131

== ENCOUNTER 2020-12-08 21:54 | Inpatient (IN) | payer OTHER ==
[~2020-12-08 21:54] MED LIST: LORazepam 2 MG/ML SDV VIAL ONE
[2020-12-08 22:53] VITALS: BMI 29.1
[2020-12-08] MEDS ORDERED: ONDANSETRON *ODT* 4 MG TABLET SL PRN (23:37)
[2020-12-08] MEDS ORDERED: MAG HYDROX/AL HYDROX/SIMETH 30 ML UNIT-DOSE CUP PO PRN (23:37)
[2020-12-08] MEDS ORDERED: MENTHOL/PHENOL 1 EACH UD MM PRN (23:37)
[2020-12-08] MEDS ORDERED: MAGNESIUM CITRATE 300 ML BOTTLE PO PRN (23:37)
[2020-12-08] MEDS ORDERED: METHOCARBAMOL 500 MG TABLET PO PRN (23:37)
[2020-12-08] MEDS ORDERED: MAGNESIUM HYDROX 2400MG/30ML ORAL SUSPENSION 30 ML CUP PO PRN (23:37)
[2020-12-08] MEDS ORDERED: NICOTINE POLACRILEX 2 MG GUM BUC PRN (23:37)
[2020-12-08] MEDS ORDERED: ACETAMINOPHEN 325 MG TABLET (FP) PO PRN (23:37)
[2020-12-08] MEDS ORDERED: BISMUTH SUBSALICYLATE 524 MG/30 ML UD PO PRN (23:37)
[2020-12-08] MEDS ORDERED: ALBUTEROL SO4 HFA INHALER IH PRN (23:46)
[2020-12-09] MEDS ORDERED: chlordiazePOXIDE HCL 25 MG CAPSULE PO PRN (00:20)
[2020-12-09] MEDS: chlordiazePOXIDE HCL 25 MG CAPSULE PO SCH ×4 (05:17→22:51)
[2020-12-09] MEDS: PRENATAL VITAMINS W/ FOLIC ACID TABLET (FP) PO SCH (10:52)
[2020-12-09] MEDS: NICOTINE 14 MG/24 HOURS TOPICAL PATCH TD SCH (10:52)
[2020-12-09] MEDS: THIAMINE HCL 100 MG TABLET (FP) PO SCH (22:50)
[2020-12-09] MEDS: MELATONIN 5 MG TABLETS PO SCH (22:52)
[2020-12-10] MEDS: chlordiazePOXIDE HCL 25 MG CAPSULE PO SCH ×3 (05:29→17:20)
[2020-12-10] MEDS: NICOTINE 14 MG/24 HOURS TOPICAL PATCH TD SCH (10:33)
[2020-12-10] MEDS: PRENATAL VITAMINS W/ FOLIC ACID TABLET (FP) PO SCH (10:34)
[2020-12-10] MEDS ORDERED: PNEUMOCOCCAL 23 VACCINE 0.5 ML VIAL IM ONE (12:00)
[2020-12-10] MEDS ORDERED: FLU VACCINE (FLULAVAL) PF 60 MCG/0.5 ML SYRINGE 2020-2021 IM ONE (12:00)
[2020-12-10] MEDS ORDERED: PNEUMOC 13-VAL CONJ-DIP CRM/PF 0.5 ML DISP.SYRIN IM ONE (12:00)
[2020-12-10 14:41] LABS: HEMATOCRIT 42.2 % (35.4-49); HEMOGLOBIN 14.2 GM/dL (11.7-16.9); MCH 31.7 pg (25.7-33.7); MCHC 33.6 g/dl (32.0-35.9); MEAN CELL VOLUME 94.4 fl (80-96); MEAN PLT VOLUME 8.4 fl (7.5-11.1); PLATELET COUNT 277 K/MM3 (134-434); RBC 4.47 M/mm3 (4.00-5.60); RDW 13.9 % (11.9-15.9); WHITE BLOOD COUNT 5.9 K/mm3 (4.0-10.0)
[2020-12-10 14:44] LABS: POTASSIUM 4.3 mmol/L (3.5-5.1)
[2020-12-10 14:45] LABS: CALCIUM 9.8 mg/dL (8.5-10.1)
[2020-12-10 14:46] LABS: ALBUMIN 3.8 g/dl (3.4-5.0); BLOOD UREA NITROGEN 6.1 mg/dL (7-18); INR 0.91 (0.83-1.09); PROTHROMBIN TIME (PATIENT) 11.2 SEC (9.7-13.0)
[2020-12-10 14:49] LABS: CREATININE 0.8 mg/dL (0.55-1.3)
[2020-12-10 14:51] LABS: BILIRUBIN,TOTAL 0.5 mg/dL (0.2-1); TOT PROT 6.5 g/dl (6.4-8.2)
[2020-12-11] MEDS ORDERED: chlordiazePOXIDE HCL 10 MG CAPSULE PO PRN
[2020-12-11] MEDS: THIAMINE HCL 100 MG TABLET (FP) PO SCH ×2 (00:11→22:35)
[2020-12-11] MEDS: chlordiazePOXIDE HCL 25 MG CAPSULE PO SCH (00:11)
[2020-12-11] MEDS: MELATONIN 5 MG TABLETS PO SCH ×2 (00:11→22:36)
[2020-12-11] MEDS: chlordiazePOXIDE HCL 10 MG CAPSULE PO SCH ×4 (05:37→22:36)
[2020-12-11] MEDS: NICOTINE 14 MG/24 HOURS TOPICAL PATCH TD SCH (10:35)
[2020-12-11] MEDS: PRENATAL VITAMINS W/ FOLIC ACID TABLET (FP) PO SCH (10:35)
[2020-12-11] MEDS ORDERED: PNEUMOCOCCAL 23 VACCINE 0.5 ML VIAL IM ONE (12:00)
[2020-12-11] MEDS: IBUPROFEN 400 MG TABLET (FP) PO PRN (15:12)
[2020-12-11] MEDS ORDERED: CYCLOBENZAPRINE HCL 10 MG TABLET (FP) PO ONE (16:34)
[2020-12-11] MEDS ORDERED: MIRTAZAPINE 30 MG TABLET PO SCH (22:00)
[2020-12-11] MEDS: BENZTROPINE MESYLATE 1 MG TABLET PO SCH (22:35)
[2020-12-11] MEDS: MIRTAZAPINE 30 MG TABLET PO SCH (22:36)
[2020-12-12] MEDS: chlordiazePOXIDE HCL 10 MG CAPSULE PO SCH ×2 (05:32→18:14)
[2020-12-12] MEDS: NICOTINE 14 MG/24 HOURS TOPICAL PATCH TD SCH (10:42)
[2020-12-12] MEDS: PRENATAL VITAMINS W/ FOLIC ACID TABLET (FP) PO SCH (10:42)
[2020-12-12] MEDS: BENZTROPINE MESYLATE 1 MG TABLET PO SCH ×2 (10:43→22:44)
[2020-12-12] MEDS: ACETAMINOPHEN 325 MG TABLET (FP) PO PRN (12:23)
[2020-12-12] MEDS: MELATONIN 5 MG TABLETS PO SCH (22:44)
[2020-12-12] MEDS: THIAMINE HCL 100 MG TABLET (FP) PO SCH (22:44)
[2020-12-12] MEDS: MIRTAZAPINE 30 MG TABLET PO SCH (22:47)
[2020-12-13] MEDS ORDERED: chlordiazePOXIDE HCL 10 MG CAPSULE PO ONE (05:00)
[2020-12-13] MEDS: ACETAMINOPHEN 325 MG TABLET (FP) PO PRN (05:42)
[2020-12-13 06:00] VITALS: BP 132/83; PULSE 78; TEMP 97.6
[2020-12-13] MEDS: IBUPROFEN 400 MG TABLET (FP) PO PRN (09:01)
== END 2020-12-13 09:04 | disposition home or self-care (01) | DRG 775 ==
LOC: YASAS 21:54 → Y6N 22:58
PROVIDERS: ADMIT Allergy & Immunology; ATTEND Allergy & Immunology
PROC: HZ2ZZZZ Detoxification Services for Substance Abuse Treatment (ICD-10-PCS; principal; 2020-12-08)
DX: F10.230 Alcohol dependence with withdrawal, uncomplicated (principal); F16.20 Hallucinogen dependence, uncomplicated; F17.210 Nicotine dependence, cigarettes, uncomplicated; F25.9 Schizoaffective disorder, unspecified; E78.5 Hyperlipidemia, unspecified; I10 Essential (primary) hypertension; J43.8 Other emphysema; J45.909 Unspecified asthma, uncomplicated; M17.31 Unilateral post-traumatic osteoarthritis, right knee; E86.0 Dehydration; R55 Syncope and collapse; R74.01 Elevation of levels of liver transaminase levels; Z91.5 Personal history of self-harm; Z88.8 Allergy status to other drugs, medicaments and biological substances; Z98.49 Cataract extraction status, unspecified eye; Z98.890 Other specified postprocedural states
CPT/HCPCS: 36415; 80053; 82962; 85027; 85610; 86780; 90732; C9803; G0009; U0003

== ENCOUNTER 2020-12-10 15:05 | Emergency (ER) | payer OTHER ==
[2020-12-10 15:43] VITALS: TEMP 100; BMI 28.1
[2020-12-10] MEDS ORDERED: ACETAMINOPHEN 1000 MG/100 ML VIAL (NON FORMULARY) IVPB ONE (17:42)
[2020-12-10] MEDS ORDERED: SODIUM CHLORIDE 0.9% 500 ML INFUS.BAG IV ONE ×2 (17:43→18:48)
[2020-12-10] MEDS ORDERED: ACETAMINOPHEN INJECTION 100 ML IVPB ONE (18:02)
[2020-12-10 18:14] LABS: BASO % 1.3 % (0-2.0); EOS % 1.6 % (0-4.5); HEMOGLOBIN 14.5 GM/dL (11.7-16.9); MCH 31.6 pg (25.7-33.7); MCHC 33.6 g/dl (32.0-35.9); MEAN CELL VOLUME 94.1 fl (80-96); MEAN PLT VOLUME 8.4 fl (7.5-11.1); MONO % 10.2 % (3.8-10.2); NEUT % 49.9 % (42.8-82.8); PLATELET COUNT 279 K/MM3 (134-434); RBC 4.57 M/mm3 (4.00-5.60); RDW 13.5 % (11.9-15.9); WHITE BLOOD COUNT 6.4 K/mm3 (4.0-10.0)
[2020-12-10 18:39] LABS: CHLORIDE 104 mmol/L (98-107); POTASSIUM 4.6 mmol/L (3.5-5.1); SODIUM 138 mmol/L (136-145)
[2020-12-10 18:41] LABS: CALCIUM 9.8 mg/dL (8.5-10.1)
[2020-12-10 18:42] LABS: ANION GAP 4 MMOL/L (8-16); BLOOD UREA NITROGEN 9.2 mg/dL (7-18); CO2 31 mmol/L (21-32); GLUCOSE,RANDOM 90 mg/dL (74-106); MAGNESIUM 2.4 mg/dL (1.8-2.4)
[2020-12-10 18:45] LABS: SGOT/AST 74 U/L (15-37); SGPT/ALT 55 U/L (13-61)
[2020-12-10 18:46] LABS: BILIRUBIN,TOTAL 0.2 mg/dL (0.2-1)
[2020-12-10 18:47] LABS: TOT PROT 7.2 g/dl (6.4-8.2)
[2020-12-10 18:48] LABS: ALK PHOS 80 U/L (45-117)
[2020-12-10 23:53] VITALS: BP 125/78; PULSE 92
== END 2020-12-11 00:40 | disposition home or self-care (01) ==
LOC: JER 15:05
PROC: 3E0234Z Introduction of Serum, Toxoid and Vaccine into Muscle, Percutaneous Approach (ICD-10-PCS; principal; 2020-12-10)
PROC: 3E033NZ Introduction of Analgesics, Hypnotics, Sedatives into Peripheral Vein, Percutaneous Approach (ICD-10-PCS; 2020-12-10)
DX: R55 Syncope and collapse (principal); F10.20 Alcohol dependence, uncomplicated; F11.10 Opioid abuse, uncomplicated
CPT/HCPCS: 36415; 80053; 82550; 82553; 83735; 84484; 85025; 99285-25; J0131

== ENCOUNTER 2021-04-23 04:12 | Emergency (ER) | payer OTHER ==
[2021-04-23] MEDS ORDERED: ACETAMINOPHEN 1000 MG/100 ML VIAL (NON FORMULARY) IVPB ONE (04:48)
[2021-04-23] MEDS ORDERED: ACETAMINOPHEN INJECTION 100 ML IVPB ONE (04:54)
[2021-04-23 04:58] VITALS: BMI 29.1
[2021-04-23 05:07] LABS: MCH 31.4 pg (25.7-33.7); MCHC 33.8 g/dl (32.0-35.9)
[2021-04-23] MEDS ORDERED: SODIUM CHLORIDE 0.9% 500 ML INFUS.BAG IV ONE ×2 (05:19→05:40)
[2021-04-23 05:26] LABS: BASO % 0.6 % (0-2.0); CHLORIDE 103 mmol/L (98-107); EOS % 0.9 % (0-4.5); HEMATOCRIT 44.4 % (35.4-49); INR 0.93 (0.83-1.09); LYMPH % 6.7 % (8-40); MEAN CELL VOLUME 92.9 fl (80-96); MEAN PLT VOLUME 9.8 fl (7.5-11.1); NEUT % 83.8 % (42.8-82.8); PLATELET COUNT 509 K/MM3 (134-434); PROTHROMBIN TIME (PATIENT) 11.3 SEC (9.7-13.0); RBC 4.78 M/mm3 (4.00-5.60); RDW 13.7 % (11.9-15.9); SODIUM 141 mmol/L (136-145); WHITE BLOOD COUNT 20.2 K/mm3 (4.0-10.0)
[2021-04-23 05:27] LABS: CALCIUM 8.7 mg/dL (8.5-10.1)
[2021-04-23 05:28] LABS: ALBUMIN 3.2 g/dl (3.4-5.0); ANION GAP 11 MMOL/L (8-16); BLOOD UREA NITROGEN 19.4 mg/dL (7-18); CO2 26 mmol/L (21-32); GLUCOSE,RANDOM 101 mg/dL (74-106)
[2021-04-23 05:29] LABS: ACTIVATED PTT 28.1 SECONDS (25.2-36.5)
[2021-04-23 05:32] LABS: CREATININE 2.7 mg/dL (0.55-1.3); SGOT/AST 24 U/L (15-37); SGPT/ALT 24 U/L (13-61)
[2021-04-23 05:34] LABS: BILIRUBIN,TOTAL 0.3 mg/dL (0.2-1); TOT PROT 6.9 g/dl (6.4-8.2)
[2021-04-23 05:35] LABS: ALK PHOS 118 U/L (45-117)
[2021-04-23 05:40] LABS: LACTIC ACID 3.9 mmol/L (0.4-2.0)
[2021-04-23] MEDS ORDERED: morphine CARPU-JECT 4 MG/1 ML DISP.SYRIN IVPUSH ONE (05:40)
[2021-04-23] MEDS ORDERED: morphine SULFATE 4 MG/ML VIAL ONE (05:42)
[2021-04-23] MEDS ORDERED: POTASSIUM CHLORIDE TABS 20 MEQ TABLET.ER (FP) PO ONE ×2 (05:44→05:52)
[2021-04-23] MEDS ORDERED: VANCOMYCIN 1 GM in D5W (PRE-DOCKED) 1,000 MG/250 ML IVPB ONE (05:49)
[2021-04-23] MEDS ORDERED: PIPERACILLIN/TAZOB 4.5 GM 4.5 GM in DEXTROSE 5%-WATER 100 ML IVPB ONE (05:49)
[2021-04-23] MEDS ORDERED: PIPERACILLIN/TAZOB 4.5 GM 4.5 GM/100 ML BAG IVPB ONE (05:53)
[2021-04-23] MEDS ORDERED: VANCOMYCIN 1 GRAM (PRE-DOCKED) 1,000 MG/250 ML BAG IVPB ONE (06:27)
[2021-04-23 08:20] LABS: ANISOCYTOSIS 1+; MACROCYTOSIS 0; PLATELET ESTIMATE INCREASED
[2021-04-23 09:15] VITALS: BP 108/69; PULSE 89; TEMP 97.7
== END 2021-04-23 09:20 | disposition short-term general hospital (02) ==
LOC: JER 04:12
PROC: 3E0333Z Introduction of Anti-inflammatory into Peripheral Vein, Percutaneous Approach (ICD-10-PCS; principal; 2021-04-23)
PROC: 3E033NZ Introduction of Analgesics, Hypnotics, Sedatives into Peripheral Vein, Percutaneous Approach (ICD-10-PCS; 2021-04-23)
PROC: 3E033NZ Introduction of Analgesics, Hypnotics, Sedatives into Peripheral Vein, Percutaneous Approach (ICD-10-PCS; 2021-04-23)
PROC: 3E03329 Introduction of Other Anti-infective into Peripheral Vein, Percutaneous Approach (ICD-10-PCS; 2021-04-23)
PROC: 3E03329 Introduction of Other Anti-infective into Peripheral Vein, Percutaneous Approach (ICD-10-PCS; 2021-04-23)
DX: R10.84 Generalized abdominal pain (principal); A41.9 Sepsis, unspecified organism
CPT/HCPCS: 36415; 71045-TC-FY; 80053; 83605; 84484; 85025; 85610; 85730; 87040; 93005; 93010; 99285-25; J0131

== ENCOUNTER 2021-05-16 20:30 | Observation (INO) | payer OTHER ==
[2021-05-16 21:00] VITALS: BMI 27.2
[2021-05-16] MEDS ORDERED: LACTATED RINGERS SOLUTION 1000 ML INFUS.BAG IV ONE ×2 (21:13→22:57)
[2021-05-16] MEDS ORDERED: PIPERACILLIN/TAZOB 3.375 GM 3.375 GM in DEXTROSE 5%-WATER - 50 ML IVPB ONE (21:14)
[2021-05-16] MEDS ORDERED: VANCOMYCIN 1 GM in D5W (PRE-DOCKED) 1,000 MG/250 ML IVPB ONE (21:14)
[2021-05-16] MEDS ORDERED: PIPERACILLIN/TAZOB 3.375 GM 3.375 GM/50 ML BAG IVPB ONE (21:28)
[2021-05-16 21:39] LABS: BASO % 0.6 % (0-2.0); EOS % 1.8 % (0-4.5); HEMATOCRIT 38.8 % (35.4-49); HEMOGLOBIN 13.2 GM/dL (11.7-16.9); MEAN CELL VOLUME 90.9 fl (80-96); MEAN PLT VOLUME 7.7 fl (7.5-11.1); MONO % 8.6 % (3.8-10.2); PLATELET COUNT 326 10^3/uL (134-434); RBC 4.27 M/mm3 (4.00-5.60); RDW 14.5 % (11.9-15.9); WHITE BLOOD COUNT 8.8 K/mm3 (4.0-10.0)
[2021-05-16 21:49] LABS: INR 0.99 (0.83-1.09)
[2021-05-16] MEDS ORDERED: VANCOMYCIN 1 GRAM (PRE-DOCKED) 1,000 MG/250 ML BAG IVPB ONE (21:50)
[2021-05-16 21:51] LABS: ACTIVATED PTT 25.5 SECONDS (25.2-36.5)
[2021-05-16 22:02] LABS: CHLORIDE 103 mmol/L (98-107); SODIUM 134 mmol/L (136-145)
[2021-05-16 22:05] LABS: ALBUMIN 3.5 g/dl (3.4-5.0); ANION GAP 10 MMOL/L (8-16); BLOOD UREA NITROGEN 17.1 mg/dL (7-18); CALCIUM 8.8 mg/dL (8.5-10.1); CO2 21 mmol/L (21-32); GLUCOSE,RANDOM 84 mg/dL (74-106)
[2021-05-16 22:08] LABS: CREATININE 2.6 mg/dL (0.55-1.3); SGOT/AST 16 U/L (15-37); SGPT/ALT 22 U/L (13-61)
[2021-05-16 22:10] LABS: BILIRUBIN,TOTAL 0.4 mg/dL (0.2-1); TOT PROT 6.6 g/dl (6.4-8.2)
[2021-05-16 22:11] LABS: ALK PHOS 103 U/L (45-117)
[2021-05-16 22:46] LABS: LACTIC ACID 2.5 mmol/L (0.4-2.0)
[2021-05-17 00:32] LABS: PH,URINE 5.5 (5.0-8.0); URINE APPEARANCE CLEAR; URINE BILIRUBIN NEGATIVE (NEGATIVE); URINE COLOR YELLOW; URINE GLUCOSE (UA) NEGATIVE (NEGATIVE); URINE KETONE NEGATIVE (NEGATIVE); URINE LEUK ESTERASE NEGATIVE (NEGATIVE); URINE NITRITE NEGATIVE (NEGATIVE); URINE PROTEIN NEGATIVE (NEGATIVE); URINE UROBILINOGEN 0.2 mg/dL (0.2-1.0)
[2021-05-17 00:43] LABS: URINE AMPHETAMINES NEGATIVE (NEGATIVE); URINE BARBITURATES NEGATIVE (NEGATIVE); URINE BENZODIAZEPINES NEGATIVE (NEGATIVE)
[2021-05-17 00:44] LABS: METHADONE, UR NEGATIVE (NEGATIVE); OPIATES, URI NEGATIVE (NEGATIVE)
[2021-05-17 00:45] LABS: COCAINE, UR POSITIVE (NEGATIVE); PHENCYCLIDINE,URINE POSITIVE (NEGATIVE)
[2021-05-17] MEDS ORDERED: HEPARIN NA (PORCINE) 5,000 UNITS/ML 1ML VIAL SQ SCH (06:00)
[2021-05-17] MEDS ORDERED: ALBUTEROL SO4 HFA INHALER IH PRN (06:43)
[2021-05-17] MEDS ORDERED: PANTOPRAZOLE 40 MG TABLET PO SCH (10:00)
[2021-05-17] MEDS ORDERED: FOLIC ACID 1 MG TABLET (FP) PO SCH (10:00)
[2021-05-17] MEDS ORDERED: ENOXAPARIN NA (PORCINE) 40 MG/0.4 ML DISP.SYRIN SQ SCH (10:00)
[2021-05-17] MEDS ORDERED: MULTIVITAMINS (DAILY MVI) TABLET (FP) PO SCH (10:00)
[2021-05-17 10:14] LABS: BASO % 0.5 % (0-2.0); EOS % 3.2 % (0-4.5); HEMATOCRIT 39.9 % (35.4-49); HEMOGLOBIN 13.3 GM/dL (11.7-16.9); LYMPH % 20.3 % (8-40); MCH 30.7 pg (25.7-33.7); MCHC 33.5 g/dl (32.0-35.9); MEAN CELL VOLUME 91.6 fl (80-96); MEAN PLT VOLUME 7.8 fl (7.5-11.1); MONO % 7.9 % (3.8-10.2); NEUT % 68.1 % (42.8-82.8); PLATELET COUNT 333 10^3/uL (134-434); RBC 4.35 M/mm3 (4.00-5.60); RDW 14.5 % (11.9-15.9); WHITE BLOOD COUNT 9.1 K/mm3 (4.0-10.0)
[2021-05-17] MEDS ORDERED: MULTIVITAMINS (DAILY MVI) TABLET (FP) ONE (10:31)
[2021-05-17] MEDS ORDERED: PANTOPRAZOLE 40 MG TABLET ONE (10:32)
[2021-05-17] MEDS ORDERED: FOLIC ACID 1 MG TABLET (FP) ONE (10:32)
[2021-05-17 10:38] LABS: ALBUMIN 3.1 g/dl (3.4-5.0); BLOOD UREA NITROGEN 17.4 mg/dL (7-18); CALCIUM 9.1 mg/dL (8.5-10.1)
[2021-05-17 10:41] LABS: CREATININE 1.6 mg/dL (0.55-1.3)
[2021-05-17 10:43] LABS: BILIRUBIN,TOTAL 0.5 mg/dL (0.2-1); TOT PROT 6.1 g/dl (6.4-8.2)
[2021-05-17 13:30] VITALS: BP 115/73; PULSE 76; TEMP 98.7
[2021-05-17] MEDS ORDERED: LACTATED RINGERS SOLUTION 1,000 ML/1,000 ML INFUS.BAG IV SCH (13:30)
[2021-05-17] MEDS ORDERED: MIRTAZAPINE 30 MG TABLET PO SCH (22:00)
== END 2021-05-17 13:50 | disposition left against medical advice (07) ==
LOC: JER 20:30 → JERBED 05-17 00:52
PROVIDERS: ADMIT Hospitalist; ATTEND Family Medicine
PROC: 3E03329 Introduction of Other Anti-infective into Peripheral Vein, Percutaneous Approach (ICD-10-PCS; principal; 2021-05-17)
PROC: 3E013GC Introduction of Other Therapeutic Substance into Subcutaneous Tissue, Percutaneous Approach (ICD-10-PCS; 2021-05-17)
DX: R55 Syncope and collapse (principal); I10 Essential (primary) hypertension; I95.9 Hypotension, unspecified; E78.5 Hyperlipidemia, unspecified; J44.9 Chronic obstructive pulmonary disease, unspecified; K21.9 Gastro-esophageal reflux disease without esophagitis; F17.210 Nicotine dependence, cigarettes, uncomplicated; F19.10 Other psychoactive substance abuse, uncomplicated; F19.20 Other psychoactive substance dependence, uncomplicated; Z90.81 Acquired absence of spleen; N17.9 Acute kidney failure, unspecified; Z88.8 Allergy status to other drugs, medicaments and biological substances; E87.2 Acidosis; K65.1 Peritoneal abscess; N20.0 Calculus of kidney
CPT/HCPCS: 36415; 70450-TC; 71045-TC-FY; 74176-TC; 80053; 80307; 81003; 82550; 83605; 84484; 85025; 85610; 85730; 87040; 87077; 87086; 93005; 93010; 96365; 96368; 96372; 99291; C9803; G0378; J1644; U0003; U0005

== ENCOUNTER 2023-04-23 10:28 | Inpatient (IN) | payer OTHER ==
[2023-04-23] MEDS ORDERED: ACETAMINOPHEN 1000 MG/100 ML BAG IVPB ONE (11:00)
[2023-04-23] MEDS ORDERED: ACETAMINOPHEN INJECTION 100 ML IVPB ONE (11:04)
[2023-04-23 11:27] LABS: BASO % 0.7 % (0-2.0); EOS % 0.9 % (0-4.5); HEMATOCRIT 41.9 % (35.4-49); HEMOGLOBIN 14.1 GM/dL (11.7-16.9); LYMPH % 30.5 % (8-40); MCHC 33.7 g/dl (32.0-35.9); MEAN CELL VOLUME 92.1 fl (80-96); MONO % 9.2 % (3.8-10.2); NEUT % 58.7 % (42.8-82.8); PLATELET COUNT 293 10^3/uL (134-434); RBC 4.55 M/mm3 (4.00-5.60); RDW 14.3 % (11.9-15.9); WHITE BLOOD COUNT 9.8 K/mm3 (4.0-10.0)
[2023-04-23 11:51] LABS: POTASSIUM 4.2 mmol/L (3.5-5.1)
[2023-04-23 11:53] LABS: CALCIUM 10.2 mg/dL (8.5-10.1)
[2023-04-23 11:54] LABS: ALBUMIN 3.9 g/dl (3.4-5.0); BLOOD UREA NITROGEN 9.9 mg/dL (7-18)
[2023-04-23 11:57] LABS: CREATININE 1.2 mg/dL (0.55-1.3)
[2023-04-23 11:58] LABS: BILIRUBIN,TOTAL 0.5 mg/dL (0.2-1); TOT PROT 6.8 g/dl (6.4-8.2)
[2023-04-23] MEDS ORDERED: methylPREDNISolone NA SUCC 125 MG/2 ML VIAL IVPUSH ONE (13:04)
[2023-04-23] MEDS: ALBUTEROL SO4 2.5/IPRATROPIUM 0.5 INH SOL 3 ML VIAL.NEB. NEB SCH ×2 (13:34→20:14)
[2023-04-23] MEDS ORDERED: methylPREDNISolone NA SUCC 125 MG/2 ML VIAL ONE (13:36)
[2023-04-23] MEDS ORDERED: ALBUTEROL SO4 2.5/IPRATROPIUM 0.5 INH SOL 3 ML VIAL.NEB. NEB ONE (13:36)
[2023-04-23] MEDS ORDERED: MAG HYDROX/AL HYDROX/SIMETH 30 ML UNIT-DOSE CUP PO ONE (17:41)
[2023-04-23] MEDS ORDERED: MAG HYDROX/AL HYDROX/SIMETH 30 ML UNIT-DOSE CUP ONE (17:42)
[2023-04-23] MEDS ORDERED: ACETAMINOPHEN 325 MG TABLET (FP) PO PRN (20:27)
[2023-04-23] MEDS ORDERED: MIRTAZAPINE 15 MG TABLET (FP) ONE (21:16)
[2023-04-23 21:33] VITALS: BMI 29.6
[2023-04-23] MEDS: HEPARIN NA (PORCINE) 5,000 UNITS/ML 1ML VIAL SQ SCH (21:35)
[2023-04-23] MEDS: methylPREDNISolone NA SUCC 40 MG/1 ML VIAL IVPUSH SCH (21:35)
[2023-04-23] MEDS: MIRTAZAPINE 30 MG TABLET PO SCH (21:41)
[2023-04-24] MEDS: methylPREDNISolone NA SUCC 40 MG/1 ML VIAL IVPUSH SCH ×4 (02:19→22:19)
[2023-04-24] MEDS: ALBUTEROL SO4 2.5/IPRATROPIUM 0.5 INH SOL 3 ML VIAL.NEB. NEB SCH ×4 (07:40→20:37)
[2023-04-24 08:21] LABS: BASO % 0.2 % (0-2.0); HEMATOCRIT 44.2 % (35.4-49); HEMOGLOBIN 14.2 GM/dL (11.7-16.9); LYMPH % 11.8 % (8-40); MCHC 32.2 g/dl (32.0-35.9); MEAN CELL VOLUME 93.3 fl (80-96); MEAN PLT VOLUME 9.4 fl (7.5-11.1); MONO % 2.7 % (3.8-10.2); NEUT % 85.3 % (42.8-82.8); PLATELET COUNT 307 10^3/uL (134-434); RBC 4.74 M/mm3 (4.00-5.60); RDW 14.2 % (11.9-15.9); WHITE BLOOD COUNT 15.1 K/mm3 (4.0-10.0)
[2023-04-24 08:49] LABS: POTASSIUM 4.6 mmol/L (3.5-5.1)
[2023-04-24 08:53] LABS: CHOLESTEROL 231 mg/dL (50-200)
[2023-04-24 08:54] LABS: ALBUMIN 3.8 g/dl (3.4-5.0); BLOOD UREA NITROGEN 16.2 mg/dL (7-18); CALCIUM 9.6 mg/dL (8.5-10.1); LDL CHOLESTEROL (ONLY SJRH) 148 mg/dL (5-100)
[2023-04-24 08:57] LABS: CREATININE 1.2 mg/dL (0.55-1.3); HDL CHOLESTEROL 56 mg/dL (40-60)
[2023-04-24 08:58] LABS: BILIRUBIN,TOTAL 0.8 mg/dL (0.2-1); TOT PROT 7.1 g/dl (6.4-8.2)
[2023-04-24] MEDS: HEPARIN NA (PORCINE) 5,000 UNITS/ML 1ML VIAL SQ SCH ×2 (09:42→22:19)
[2023-04-24] MEDS: FOLIC ACID 1 MG TABLET (FP) PO SCH (09:43)
[2023-04-24] MEDS: PANTOPRAZOLE 40 MG TABLET PO SCH (09:43)
[2023-04-24] MEDS ORDERED: CEFTRIAXONE 2 GM-D5W BAG 2 GM/50 ML BAG IVPB SCH (14:00)
[2023-04-24] MEDS ORDERED: AZITHROMYCIN IVPB 500 MG in DEXTROSE 5%-WATER - 250 ML IVPB SCH (14:00)
[2023-04-24] MEDS ORDERED: MIRTAZAPINE 15 MG TABLET (FP) ONE (22:04)
[2023-04-24] MEDS: MIRTAZAPINE 30 MG TABLET PO SCH (22:19)
[2023-04-25] MEDS: methylPREDNISolone NA SUCC 40 MG/1 ML VIAL IVPUSH SCH ×4 (02:13→22:09)
[2023-04-25] MEDS: ALBUTEROL SO4 2.5/IPRATROPIUM 0.5 INH SOL 3 ML VIAL.NEB. NEB SCH ×4 (07:40→20:26)
[2023-04-25 08:12] LABS: HEMATOCRIT 42.6 % (35.4-49); MCH 30.4 pg (25.7-33.7); MCHC 32.8 g/dl (32.0-35.9); MEAN CELL VOLUME 92.7 fl (80-96); MEAN PLT VOLUME 9.2 fl (7.5-11.1); PLATELET COUNT 276 10^3/uL (134-434); RBC 4.59 M/mm3 (4.00-5.60); RDW 14.3 % (11.9-15.9); WHITE BLOOD COUNT 20.6 K/mm3 (4.0-10.0)
[2023-04-25 08:32] LABS: POTASSIUM 4.4 mmol/L (3.5-5.1)
[2023-04-25 08:34] LABS: CALCIUM 9.2 mg/dL (8.5-10.1)
[2023-04-25 08:35] LABS: ALBUMIN 3.7 g/dl (3.4-5.0)
[2023-04-25 08:38] LABS: CREATININE 1.1 mg/dL (0.55-1.3)
[2023-04-25 08:40] LABS: BILIRUBIN,TOTAL 0.6 mg/dL (0.2-1); TOT PROT 6.9 g/dl (6.4-8.2)
[2023-04-25] MEDS: PANTOPRAZOLE 40 MG TABLET PO SCH (10:58)
[2023-04-25] MEDS: HEPARIN NA (PORCINE) 5,000 UNITS/ML 1ML VIAL SQ SCH ×2 (10:59→22:09)
[2023-04-25] MEDS: CEFTRIAXONE 2 GM in DEXTROSE 5%-WATER 100 ML IVPB SCH (10:59)
[2023-04-25] MEDS: FOLIC ACID 1 MG TABLET (FP) PO SCH (10:59)
[2023-04-25] MEDS: AZITHROMYCIN IVPB 500 MG/250 ML BAG IVPB SCH (12:10)
[2023-04-25] MEDS ORDERED: chlordiazePOXIDE HCL 25 MG CAPSULE PO PRN (15:38)
[2023-04-25] MEDS ORDERED: MIRTAZAPINE 15 MG TABLET (FP) ONE (21:19)
[2023-04-25] MEDS: MIRTAZAPINE 30 MG TABLET PO SCH (22:11)
[2023-04-26] MEDS: methylPREDNISolone NA SUCC 40 MG/1 ML VIAL IVPUSH SCH ×3 (02:20→23:20)
[2023-04-26] MEDS: ALBUTEROL SO4 2.5/IPRATROPIUM 0.5 INH SOL 3 ML VIAL.NEB. NEB SCH ×4 (07:43→19:54)
[2023-04-26] MEDS: CEFTRIAXONE 2 GM in DEXTROSE 5%-WATER 100 ML IVPB SCH (10:27)
[2023-04-26] MEDS: FOLIC ACID 1 MG TABLET (FP) PO SCH (10:27)
[2023-04-26] MEDS: PANTOPRAZOLE 40 MG TABLET PO SCH (10:27)
[2023-04-26] MEDS: HEPARIN NA (PORCINE) 5,000 UNITS/ML 1ML VIAL SQ SCH ×2 (10:27→21:34)
[2023-04-26] MEDS: AZITHROMYCIN IVPB 500 MG/250 ML BAG IVPB SCH (10:56)
[2023-04-26] MEDS ORDERED: MIRTAZAPINE 15 MG TABLET (FP) ONE (21:15)
[2023-04-26] MEDS: MIRTAZAPINE 30 MG TABLET PO SCH (21:33)
[2023-04-26] MEDS: CEFUROXIME AXETIL 500 MG TABLET PO SCH (21:34)
[2023-04-27] MEDS: ALBUTEROL SO4 2.5/IPRATROPIUM 0.5 INH SOL 3 ML VIAL.NEB. NEB SCH ×2 (07:10→11:16)
[2023-04-27] MEDS: FOLIC ACID 1 MG TABLET (FP) PO SCH (09:01)
[2023-04-27] MEDS: methylPREDNISolone NA SUCC 40 MG/1 ML VIAL IVPUSH SCH (09:01)
[2023-04-27] MEDS: PANTOPRAZOLE 40 MG TABLET PO SCH (09:01)
[2023-04-27] MEDS: HEPARIN NA (PORCINE) 5,000 UNITS/ML 1ML VIAL SQ SCH (09:01)
[2023-04-27] MEDS: CEFUROXIME AXETIL 500 MG TABLET PO SCH (09:22)
[2023-04-27 16:05] VITALS: BP 118/76; PULSE 64; RESP 20; TEMP 97.8
== END 2023-04-27 03:00 | disposition home or self-care (01) | DRG 140 ==
LOC: JER 10:28 → JERBED 15:26 → OBSVTOIN 15:58 → J6S 18:07 → J8W 04-25 12:46
PROVIDERS: ADMIT Family Medicine; ATTEND Family Medicine
PROC: HZ2ZZZZ Detoxification Services for Substance Abuse Treatment (ICD-10-PCS; principal; 2023-04-23)
DX: J44.1 Chronic obstructive pulmonary disease with (acute) exacerbation (principal); F31.9 Bipolar disorder, unspecified; F10.20 Alcohol dependence, uncomplicated; F19.20 Other psychoactive substance dependence, uncomplicated; G47.33 Obstructive sleep apnea (adult) (pediatric); J40 Bronchitis, not specified as acute or chronic
CPT/HCPCS: 0241U-QW; 36415; 71046-TC-FY; 71250-TC; 80053; 80061; 84443; 84484; 85025; 85027; 87040; 87899; 93005; 93010; 94640; 94761; 99285-25; G0378; J1644

== ENCOUNTER 2024-07-13 20:18 | Inpatient (IN) | payer OTHER ==
[2024-07-13] MEDS ORDERED: methylPREDNISolone NA SUCC 125 MG/2 ML VIAL ONE (20:51)
[2024-07-13] MEDS ORDERED: ALBUTEROL SO4 2.5/IPRATROPIUM 0.5 INH SOL 3 ML VIAL.NEB. NEB ONE (20:51)
[2024-07-13 20:54] LABS: VENOUS BASE EXCESS -0.5 mmol/L (-2-2); VENOUS PCO2 37.9 mmHg (38-52); VENOUS PH 7.415 (7.310-7.410)
[2024-07-13] MEDS: ALBUTEROL SO4 2.5/IPRATROPIUM 0.5 INH SOL 3 ML VIAL.NEB. NEB SCH (20:56)
[2024-07-13] MEDS: methylPREDNISolone NA SUCC 125 MG/2 ML VIAL IVPB ONE (20:56)
[2024-07-13 21:07] LABS: BASO % 0.3 % (0-2.0); EOS % 0.5 % (0-4.5); HEMATOCRIT 43.6 % (35.4-49); HEMOGLOBIN 14.9 GM/dL (11.7-16.9); LYMPH % 27.1 % (8-40); MCHC 34.1 g/dl (32.0-35.9); MEAN CELL VOLUME 93.7 fl (80-96); MEAN PLT VOLUME 9.5 fl (7.5-11.1); NEUT % 64.1 % (42.8-82.8); PLATELET COUNT 257 10^3/uL (134-434); RBC 4.65 M/mm3 (4.00-5.60); RDW 14.1 % (11.9-15.9); WHITE BLOOD COUNT 9.2 K/mm3 (4.0-10.0)
[2024-07-13 21:15] LABS: INR 0.94 (0.83-1.09); PROTHROMBIN TIME (PATIENT) 10.8 SEC (9.7-13.0)
[2024-07-13 21:18] LABS: ACTIVATED PTT 28.5 SECONDS (25.2-36.5)
[2024-07-13 21:32] LABS: POTASSIUM 3.9 mmol/L (3.5-5.1)
[2024-07-13 21:35] LABS: ALBUMIN 3.9 g/dl (3.4-5.0); BLOOD UREA NITROGEN 16.4 mg/dL (7-18)
[2024-07-13 21:40] LABS: BILIRUBIN,TOTAL 0.6 mg/dL (0.2-1); TOT PROT 6.4 g/dl (6.4-8.2)
[2024-07-13] MEDS ORDERED: ACETAMINOPHEN INJECTION 100 ML ONE (22:30)
[2024-07-13] MEDS: ACETAMINOPHEN 1000 MG/100 ML BAG IVPB ONE (22:34)
[2024-07-14] MEDS ORDERED: guaiFENesin/D-METHORPHAN HB 10 ML UNIT-DOSE CUPS ONE (01:47)
[2024-07-14] MEDS: guaiFENesin/D-METHORPHAN HB 10 ML UNIT-DOSE CUPS PO ONE (01:48)
[2024-07-14] MEDS ORDERED: methylPREDNISolone NA SUCC 40 MG/1 ML VIAL ONE (02:06)
[2024-07-14] MEDS: methylPREDNISolone NA SUCC 40 MG/1 ML VIAL IVPUSH SCH (02:10)
[2024-07-14] MEDS: FOLIC ACID INJECTION - 1 MG, THIAMINE HCL 100 MG, MULTIVIT INJECTION ADULT 10 ML in SOD... IVPB ONE (02:33)
[2024-07-14 03:38] VITALS: BMI 32.1
[2024-07-14] MEDS ORDERED: ALBUTEROL SO4 HFA INHALER IH SCH (06:45)
[2024-07-14] MEDS: ALBUTEROL SO4 2.5/IPRATROPIUM 0.5 INH SOL 3 ML VIAL.NEB. NEB SCH (07:29)
[2024-07-14] MEDS: PANTOPRAZOLE 40 MG TABLET PO SCH (07:30)
[2024-07-14] MEDS ORDERED: ALBUTEROL SO4 2.5/IPRATROPIUM 0.5 INH SOL 3 ML VIAL.NEB. NEB SCH (08:00)
[2024-07-14 08:20] LABS: COCAINE, UR NEGATIVE (NEGATIVE); METHADONE, UR NEGATIVE (NEGATIVE); OPIATES, URI NEGATIVE (NEGATIVE); URINE BARBITURATES NEGATIVE (NEGATIVE); URINE BENZODIAZEPINES NEGATIVE (NEGATIVE)
[2024-07-14 08:21] LABS: URINE AMPHETAMINES NEGATIVE (NEGATIVE)
[2024-07-14 08:22] LABS: PHENCYCLIDINE,URINE POSITIVE (NEGATIVE)
[2024-07-14 08:25] LABS: POTASSIUM 4.4 mmol/L (3.5-5.1)
[2024-07-14 08:31] LABS: ALBUMIN 3.4 g/dl (3.4-5.0); HEMATOCRIT 41.5 % (35.4-49); HEMOGLOBIN 14.4 GM/dL (11.7-16.9); LYMPH % 11.5 % (8-40); MAGNESIUM 2.4 mg/dL (1.8-2.4); MCH 32.1 pg (25.7-33.7); MCHC 34.6 g/dl (32.0-35.9); MEAN CELL VOLUME 92.8 fl (80-96); MEAN PLT VOLUME 9.7 fl (7.5-11.1); MONO % 2.2 % (3.8-10.2); NEUT % 86.3 % (42.8-82.8); PLATELET COUNT 235 10^3/uL (134-434); RBC 4.47 M/mm3 (4.00-5.60); RDW 14.2 % (11.9-15.9)
[2024-07-14 08:32] LABS: BLOOD UREA NITROGEN 16.5 mg/dL (7-18)
[2024-07-14 08:34] LABS: PHOSPHOROUS 3.6 mg/dL (2.5-4.9)
[2024-07-14 08:36] LABS: BILIRUBIN,TOTAL 0.8 mg/dL (0.2-1); TOT PROT 6.1 g/dl (6.4-8.2)
[2024-07-14 09:25] LABS: PH,URINE 6.5 (5.0-8.0); URINE APPEARANCE CLEAR; URINE BILIRUBIN NEGATIVE (NEGATIVE); URINE COLOR YELLOW; URINE GLUCOSE (UA) NEGATIVE (NEGATIVE); URINE KETONE TRACE (NEGATIVE); URINE LEUK ESTERASE NEGATIVE (NEGATIVE); URINE NITRITE NEGATIVE (NEGATIVE); URINE PROTEIN NEGATIVE (NEGATIVE)
[2024-07-14] MEDS: BUDESONIDE/FORMETEROL FUMARATE 80/4.5 mcg INHALER IH SCH (09:39)
[2024-07-14] MEDS: ENOXAPARIN NA (PORCINE) 40 MG/0.4 ML DISP.SYRIN SQ SCH (09:39)
[2024-07-14] MEDS: THIAMINE 100 MG TABLET PO SCH (09:40)
[2024-07-14] MEDS: NICOTINE 7 MG/24 HOURS TOPICAL PATCH TD SCH (09:40)
[2024-07-14] MEDS: CEFTRIAXONE 1 GM in DEXTROSE 5%-WATER - 50 ML IVPB SCH (09:40)
[2024-07-14] MEDS: PREGABALIN 75 MG CAPSULE PO SCH (09:40)
[2024-07-14] MEDS: TAMSULOSIN HCL 0.4 MG CAP PO SCH (09:40)
[2024-07-14] MEDS: FOLIC ACID 1 MG TABLET (FP) PO SCH (09:40)
[2024-07-14] MEDS ORDERED: THIAMINE 100 MG TABLET PO SCH (10:00)
[2024-07-14] MEDS: AZITHROMYCIN IVPB 500 MG/250 ML BAG IVPB SCH (10:32)
[2024-07-14] MEDS ORDERED: ALBUTEROL SO4 HFA INHALER IH PRN (13:30)
[2024-07-14] MEDS ORDERED: ACETAMINOPHEN 325 MG TABLET (FP) PO PRN (13:35)
[2024-07-14] MEDS: ACETAMINOPHEN 1000 MG/100 ML BAG IVPB PRN (14:02)
[2024-07-14] MEDS: FLUTICASONE/UMECLIDIN/VILANTER(200-62.5-25 TRELEGY ELLIPTA) INAHLER IH SCH (14:40)
[2024-07-14] MEDS: ATORVASTATIN CA 80 MG TABLET (FP) PO SCH (21:43)
[2024-07-15] MEDS: ACETAMINOPHEN 325 MG TABLET (FP) PO PRN (06:14)
[2024-07-15] MEDS: predniSONE 20 MG TABLET (UD) PO SCH (09:20)
[2024-07-15 10:32] LABS: EOS % 0.3 % (0-4.5); HEMOGLOBIN 14.4 GM/dL (11.7-16.9); LYMPH % 32.1 % (8-40); MCH 32.1 pg (25.7-33.7); MCHC 34.2 g/dl (32.0-35.9); MEAN CELL VOLUME 93.8 fl (80-96); MEAN PLT VOLUME 9.9 fl (7.5-11.1); MONO % 9.6 % (3.8-10.2); PLATELET COUNT 244 10^3/uL (134-434); RBC 4.48 M/mm3 (4.00-5.60); WHITE BLOOD COUNT 12.9 K/mm3 (4.0-10.0)
[2024-07-15 10:54] LABS: CALCIUM 9.2 mg/dL (8.5-10.1)
[2024-07-15 10:55] LABS: ALBUMIN 3.5 g/dl (3.4-5.0); BLOOD UREA NITROGEN 19.1 mg/dL (7-18)
[2024-07-15 10:57] LABS: MAGNESIUM 2.3 mg/dL (1.8-2.4)
[2024-07-15 10:58] LABS: CREATININE 0.9 mg/dL (0.55-1.3)
[2024-07-15 11:00] LABS: BILIRUBIN,TOTAL 0.8 mg/dL (0.2-1); TOT PROT 5.9 g/dl (6.4-8.2)
[2024-07-15] MEDS: KETOROLAC TROMETHAMINE 10 MG TABLET PO ONE (11:35)
[2024-07-15] MEDS: FLUTICASONE/UMECLIDIN/VILANTER(200-62.5-25 TRELEGY ELLIPTA) INAHLER IH SCH (12:56)
[2024-07-15] MEDS: ACETAMINOPHEN 325 MG TABLET (FP) PO SCH (18:41)
[2024-07-15] MEDS: LIDOCAINE 5% TOPICAL PATCH TP SCH (18:42)
[2024-07-15] MEDS: LIDOCAINE PATCH REMOVAL MC SCH (22:23)
[2024-07-16 08:57] LABS: BASO % 0.3 % (0-2.0); EOS % 0.3 % (0-4.5); HEMATOCRIT 43.2 % (35.4-49); HEMOGLOBIN 14.5 GM/dL (11.7-16.9); LYMPH % 45.9 % (8-40); MCH 31.9 pg (25.7-33.7); MCHC 33.6 g/dl (32.0-35.9); MEAN CELL VOLUME 95.2 fl (80-96); MEAN PLT VOLUME 9.4 fl (7.5-11.1); MONO % 10.7 % (3.8-10.2); NEUT % 42.8 % (42.8-82.8); PLATELET COUNT 228 10^3/uL (134-434); RBC 4.54 M/mm3 (4.00-5.60); RDW 13.8 % (11.9-15.9); WHITE BLOOD COUNT 11.2 K/mm3 (4.0-10.0)
[2024-07-16 09:19] LABS: POTASSIUM 4.1 mmol/L (3.5-5.1)
[2024-07-16 09:22] LABS: CALCIUM 9.3 mg/dL (8.5-10.1); MAGNESIUM 2.4 mg/dL (1.8-2.4)
[2024-07-16 09:24] LABS: ALBUMIN 3.3 g/dl (3.4-5.0); BLOOD UREA NITROGEN 22.1 mg/dL (7-18)
[2024-07-16 09:27] LABS: BILIRUBIN,TOTAL 0.6 mg/dL (0.2-1)
[2024-07-16 09:28] LABS: TOT PROT 5.9 g/dl (6.4-8.2)
[2024-07-16] MEDS: AZITHROMYCIN 250 MG TABLET PO SCH (09:42)
[2024-07-16 14:05] VITALS: RESP 20
[2024-07-16] MEDS: traMADol HCL 50 MG TABLET PO PRN (15:21)
[2024-07-17 06:40] VITALS: BP 100/65; PULSE 60; TEMP 98.6
[2024-07-17 10:11] LABS: BASO % 0.1 % (0-2.0); EOS % 0.6 % (0-4.5); HEMATOCRIT 44.6 % (35.4-49); HEMOGLOBIN 15.2 GM/dL (11.7-16.9); LYMPH % 47.5 % (8-40); MEAN CELL VOLUME 94.2 fl (80-96); MEAN PLT VOLUME 9.8 fl (7.5-11.1); MONO % 12.1 % (3.8-10.2); NEUT % 39.7 % (42.8-82.8); PLATELET COUNT 250 10^3/uL (134-434); RBC 4.74 M/mm3 (4.00-5.60); WHITE BLOOD COUNT 10.6 K/mm3 (4.0-10.0)
[2024-07-17 10:21] LABS: POTASSIUM 3.7 mmol/L (3.5-5.1)
[2024-07-17 10:26] LABS: ALBUMIN 3.5 g/dl (3.4-5.0); BLOOD UREA NITROGEN 20.1 mg/dL (7-18)
[2024-07-17 10:27] LABS: MAGNESIUM 2.3 mg/dL (1.8-2.4)
[2024-07-17 10:31] LABS: TOT PROT 6.1 g/dl (6.4-8.2)
== END 2024-07-17 13:38 | disposition home health service (06) | DRG 191 ==
LOC: JER 20:18 → JERBED 22:30 → J8W 07-14 03:21 → OBSVTOIN 07-15 14:50
PROVIDERS: ADMIT Internal Medicine; ATTEND Nurse Practitioner Family
DX: J44.1 Chronic obstructive pulmonary disease with (acute) exacerbation (principal); J45.902 Unspecified asthma with status asthmaticus; I10 Essential (primary) hypertension; K21.9 Gastro-esophageal reflux disease without esophagitis; N40.0 Benign prostatic hyperplasia without lower urinary tract symptoms; G47.30 Sleep apnea, unspecified; E78.5 Hyperlipidemia, unspecified; F17.210 Nicotine dependence, cigarettes, uncomplicated; M17.0 Bilateral primary osteoarthritis of knee; E66.9 Obesity, unspecified; Z68.32 Body mass index [BMI] 32.0-32.9, adult; F20.9 Schizophrenia, unspecified; F31.9 Bipolar disorder, unspecified; F19.10 Other psychoactive substance abuse, uncomplicated
CPT/HCPCS: 0241U-QW; 36415; 71045-TC-FY; 71101-TC-RT-FY; 80053; 80307; 81003; 82803; 82962; 83735; 83880; 84100; 84484; 85025; 85610; 85730; 87635; 93005; 93010; 94640; 94761; 97116-GP; 97161-GP; 99285-25; G0378; J0131

== ENCOUNTER 2024-11-13 15:50 | Inpatient (IN) | payer OTHER ==
[2024-11-13 17:12] VITALS: BMI 31.9
[2024-11-13] MEDS ORDERED: BENZONATATE 200 MG CAPSULE PO PRN (17:50)
[2024-11-13] MEDS ORDERED: MAGNESIUM HYDROX 2400MG/30ML ORAL SUSPENSION 30 ML CUP PO PRN (17:50)
[2024-11-13] MEDS ORDERED: ONDANSETRON *ODT* 4 MG TABLET SL PRN (17:50)
[2024-11-13] MEDS ORDERED: BENZOCAINE/MENTHOL (CHLORASEPTIC ) LOZENGE MM PRN (17:50)
[2024-11-13] MEDS ORDERED: guaiFENesin 600 MG TABLET.ER (FP) PO PRN (17:50)
[2024-11-13] MEDS ORDERED: LOPERAMIDE HCL 2 MG CAPSULE PO PRN (17:50)
[2024-11-13] MEDS ORDERED: IBUPROFEN 400 MG TABLET (FP) PO PRN (17:50)
[2024-11-13] MEDS ORDERED: hydrOXYzine PAMOATE 25 MG CAPSULE (FP) PO PRN (17:50)
[2024-11-13] MEDS ORDERED: diazePAM 5 MG TABLET PO PRN (17:50)
[2024-11-13] MEDS ORDERED: MAG HYDROX/AL HYDROX/SIMETH 30 ML UNIT-DOSE CUP PO PRN (17:50)
[2024-11-13] MEDS ORDERED: DICYCLOMINE HCL 10 MG CAPSULE PO PRN (17:50)
[2024-11-13] MEDS ORDERED: POLYETHYLENE GLYCOL (HEALTHYLAX) 3350 17 GM PACKET PO PRN (17:50)
[2024-11-13] MEDS ORDERED: BISMUTH SUBSALICYLATE 524 MG/30 ML PO PRN (17:50)
[2024-11-13] MEDS ORDERED: NALOXONE (NARCAN) HCL 4 MG/0.1 ML SPRAY NS PRN (17:50)
[2024-11-13] MEDS: THIAMINE 100 MG TABLET PO SCH (21:37)
[2024-11-13] MEDS: MELATONIN 5 MG TABLETS PO SCH (21:37)
[2024-11-13] MEDS: diazePAM 5 MG TABLET PO PRN (21:37)
[2024-11-13] MEDS: diazePAM 5 MG TABLET PO SCH (22:44)
[2024-11-14] MEDS: PRENATAL VITAMINS W/ FOLIC ACID TABLET (FP) PO SCH (10:07)
[2024-11-14] MEDS: DULoxetine HCL 60 MG CAPSULE.DR PO SCH (13:23)
[2024-11-14] MEDS: PALIPERIDONE 9 MG TABELT ER PO SCH (13:24)
[2024-11-14] MEDS: METHOCARBAMOL 500 MG TABLET PO PRN (13:24)
[2024-11-14 14:05] LABS: HEMATOCRIT 41.2 % (35.4-49); HEMOGLOBIN 13.3 GM/dL (11.7-16.9); MCH 30.8 pg (25.7-33.7); MCHC 32.3 g/dl (32.0-35.9); MEAN CELL VOLUME 95.3 fl (80-96); MEAN PLT VOLUME 9.3 fl (7.5-11.1); PLATELET COUNT 348 10^3/uL (134-434); RBC 4.33 M/mm3 (4.00-5.60); RDW 13.7 % (11.9-15.9)
[2024-11-14 14:21] LABS: CHLORIDE 109 mmol/L (98-107); POTASSIUM 4.5 mmol/L (3.5-5.1); SODIUM 143 mmol/L (136-145)
[2024-11-14 14:24] LABS: CALCIUM 9.1 mg/dL (8.5-10.1)
[2024-11-14 14:25] LABS: ALBUMIN 3.2 g/dl (3.4-5.0); ANION GAP 4 mmol/L (4-13); CO2 29 mmol/L (21-32); GLUCOSE,RANDOM 91 mg/dL (74-106)
[2024-11-14 14:28] LABS: CREATININE 0.9 mg/dL (0.55-1.3); SGOT/AST 24 U/L (15-37); SGPT/ALT 21 U/L (13-61)
[2024-11-14 14:29] LABS: BILIRUBIN,TOTAL 0.6 mg/dL (0.2-1); TOT PROT 5.7 g/dl (6.4-8.2)
[2024-11-14 14:31] LABS: ALK PHOS 68 U/L (45-117)
[2024-11-14] MEDS ORDERED: ALBUTEROL SO4 HFA INHALER IH PRN (14:50)
[2024-11-14] MEDS: FLUTICASONE/UMECLIDIN/VILANTER(200-62.5-25 TRELEGY ELLIPTA) INAHLER IH SCH (15:52)
[2024-11-14] MEDS: ACETAMINOPHEN 325 MG TABLET (FP) PO PRN (17:52)
[2024-11-14] MEDS ORDERED: NORTRIPTYLINE HCL 50 MG CAPSULE PO SCH (22:00)
[2024-11-14] MEDS: FAMOTIDINE 20 MG TABLET PO SCH (22:57)
[2024-11-14] MEDS: NORTRIPTYLINE HCL 25 MG CAPSULE PO SCH (22:57)
[2024-11-15] MEDS: IBUPROFEN 600 MG TABLET (FP) PO PRN (05:46)
[2024-11-15] MEDS: diazePAM 5 MG TABLET PO SCH (05:46)
[2024-11-15] MEDS: TAMSULOSIN HCL 0.4 MG CAP PO SCH (08:39)
[2024-11-15] MEDS: NICOTINE 21 MG/24 HOURS TOPICAL PATCH TD SCH (13:15)
[2024-11-16] MEDS: diazePAM 5 MG TABLET PO SCH (05:44)
[2024-11-16] MEDS: NALOXONE (NYS OPIOID OVERDOSE PROGRAM) 4 MG/0.1 ML SPRAY NS SCH (16:10)
[2024-11-17] MEDS: diazePAM 5 MG TABLET PO ONE (05:45)
[2024-11-17 06:24] VITALS: PULSE 82
[2024-11-17 09:01] VITALS: BP 138/78; RESP 17; TEMP 97.7
== END 2024-11-17 09:20 | disposition home or self-care (01) | DRG 897 ==
LOC: YASAS 15:50 → Y6N 20:05
PROVIDERS: ADMIT Allergy & Immunology; ATTEND Surgery
PROC: HZ2ZZZZ Detoxification Services for Substance Abuse Treatment (ICD-10-PCS; principal; 2024-11-13)
DX: F10.230 Alcohol dependence with withdrawal, uncomplicated (principal); F17.213 Nicotine dependence, cigarettes, with withdrawal; F10.282 Alcohol dependence with alcohol-induced sleep disorder; F10.24 Alcohol dependence with alcohol-induced mood disorder; F32.89 Other specified depressive episodes; I10 Essential (primary) hypertension; J45.20 Mild intermittent asthma, uncomplicated; M17.31 Unilateral post-traumatic osteoarthritis, right knee; N40.0 Benign prostatic hyperplasia without lower urinary tract symptoms; R76.11 Nonspecific reaction to tuberculin skin test without active tuberculosis; Z99.89 Dependence on other enabling machines and devices; Z90.81 Acquired absence of spleen
CPT/HCPCS: 36415; 80053; 80305; 80307; 85027; 86780; 93005; 93010